=== PATIENT | female | born 1965 | race Caucasian/White ===

== ENCOUNTER 2020-05-15 15:18 | Outpatient (REF) | payer BC, SELFPAY ==
--- NOTE | 2020-05-15 15:25 | MM_ITS ---
EXAMINATION: MM SCREENING DIGITAL BREAST TOMOSYNTHESIS, BILATERAL CLINICAL INFORMATION: Screening. Asymptomatic. The lifetime risk of breast cancer based on the Tyrer-Cuzick Model is 11.7%. COMPARISON: Mammography: May 13, 2019 and studies going back to February 17, 2012 TECHNIQUE: Digital breast tomosynthesis is performed in both the craniocaudal and mediolateral oblique views along with computer-aided detection (CAD). Synthesized 2D images are generated from the tomosynthesis. FINDINGS: There are scattered areas of fibroglandular density (ACR BI-RADS breast composition Category b). There are no significant masses, abnormal calcifications, or other abnormalities. MM/MM tomosynthesis screening BI IMPRESSION: There are no significant changes from prior study. ASSESSMENT: BI-RADS 1: Negative RECOMMENDATION: Routine annual mammography screening. This patient's information was entered into a reminder system with a target due date for their next mammogram.
== END 2020-05-15 15:19 | disposition home or self-care (01) ==
LOC: HO.MAMMO 15:18
PROVIDERS: Visit Provider Internal Medicine
DX: Z12.31 Encounter for screening mammogram for malignant neoplasm of breast (principal)
CPT/HCPCS: 77063; 77067

== ENCOUNTER 2020-05-25 10:52 | Outpatient (REF) | payer OTHER, SELFPAY ==
[2020-05-25 11:10] LABS: COVID-19 Test Negative (Negative); IDNOW Serial# 55D5AD1C
== END 2020-05-25 10:53 | disposition home or self-care (01) ==
LOC: HO.LAB 10:52
PROVIDERS: PCP Internal Medicine; Visit Provider Internal Medicine
DX: Z20.822 Contact with and (suspected) exposure to COVID-19 (principal)
CPT/HCPCS: 36415; 87635; C9803

== ENCOUNTER 2020-06-15 08:01 | Outpatient (REF) | payer BC, SELFPAY ==
[2020-06-20 00:12] LABS: HPV mRNA E6/E7 rflx Not Detected (Not Detected)
== END 2020-06-15 08:02 | disposition home or self-care (01) ==
LOC: HO.LAB 08:01
PROVIDERS: PCP Internal Medicine; Visit Provider Advanced Practice Midwife
DX: Z01.419 Encounter for gynecological examination (general) (routine) without abnormal findings (principal); F41.8 Other specified anxiety disorders; Z91.018 Allergy to other foods; Z80.3 Family history of malignant neoplasm of breast; Z11.51 Encounter for screening for human papillomavirus (HPV)
CPT/HCPCS: 36415; 87624; 88142

== ENCOUNTER 2020-07-05 08:13 | Outpatient (REF) | payer BC, SELFPAY ==
[2020-07-05 09:18] LABS: MANUAL DIFF FLAG NO
[2020-07-05 09:33] LABS: Basophils Percent Auto 0.8 % (0-2); Eosinophils Absolute Auto 0.1 X10*3/uL (0.0-0.4); Eosinophils Percent Auto 3.1 % (0-4); Hematocrit 38.8 % (37-47); Hemoglobin 12.8 g/dl (12.0-16.0); Imm Gran Abs Auto 0.01 X10*3/uL (0.00-0.03); Imm Gran Pct Auto 0.3 % (0.0-0.4); Lymphocytes Absolute Auto 1.6 X10*3/uL (1.2-4.9); Lymphocytes Percent Auto 40.1 % (20-40); Mean Corpuscular Hemoglobin 32.8 pg (27.0-33.0); Mean Corpuscular Volume 99.5 fL (80-98); Mean Platelet Volume 10.2 fL (9.4-12.3); Monocytes Absolute Auto 0.3 X10*3/uL (0.1-1.2); Neutrophils Absolute Auto 1.9 X10*3/uL (2.0-8.3); Neutrophils Percent Auto 48.7 % (45-73); Platelet Count 235 X10*3/uL (160-400); Red Cell Distribution Width 12.3 % (11.0-16.0); White Blood Count 3.9 X10*3/uL (4.8-10.8)
[2020-07-05 09:51] LABS: Alanine Aminotransferase 17 U/L (0-31); Albumin Level 4.5 g/dL (3.5-5.0); Alkaline Phosphatase 52 U/L (39-117); Anion Gap 15 (12-20); Aspartate Amino Transferase 22 U/L (5-31); Bilirubin Total 0.8 mg/dL (0.0-1.0); Blood Urea Nitrogen 15 mg/dL (9-16); Calcium 9.3 mg/dL (8.4-10.2); Carbon Dioxide 27 mmol/L (22-29); Chloride 104 mmol/L (96-108); Cholesterol 157 mg/dL; Estimated Glomerular Filt Rate > 60; Glucose Fasting 84 mg/dL (60-99); HDL Cholesterol 58 mg/dL; LDL Cholesterol Calculated 91 mg/dl; Sodium 141 mmol/L (135-145); Total Protein 7.2 g/dL (6.5-8.0); Triglycerides 43 mg/dL
== END 2020-07-05 08:14 | disposition home or self-care (01) ==
LOC: HO.LAB 08:13
PROVIDERS: PCP Internal Medicine; Visit Provider Internal Medicine
DX: Z00.00 Encounter for general adult medical examination without abnormal findings (principal)
CPT/HCPCS: 36415; 80053; 80061; 82306; 85025

== ENCOUNTER 2020-12-04 11:40 | Outpatient (REF) | payer OTHER, SELFPAY ==
--- NOTE | ~2020-12-04 | XR_ITS ---
EXAMINATION: XR SHOULDER, LEFT XR CERVICAL SPINE CLINICAL INDICATION: Shoulder and neck pain. COMPARISON: None. TECHNIQUE: 4 views of the left shoulder. 6 views of the cervical spine. FINDINGS: LEFT SHOULDER 4 views of left shoulder demonstrate no evidence for fracture or dislocation. No bony erosion. There is a globular calcification anterolaterally which may represent calcific tendinitis or calcific bursitis. No bony lesion. CERVICAL SPINE: 6 views of the cervical spine including oblique imaging demonstrate normal lordosis. There is some early degenerative changes at C5-C6 with loss of disc height and posterior as well as anterior spurring. The oblique imaging demonstrating mild foraminal encroachment at C5-C6 and C6-C7 on the left. More moderate foraminal encroachment at C5-C6 on the right. There is no scoliosis. XR/XR cervical spine min 6V IMPRESSION: Findings suggest calcific tendinosis of the superior rotator cuff versus an element of calcific deltoid bursitis in the region of the left shoulder as described. Otherwise no significant degenerative changes seen. There is no bony erosion. Some early degenerative changes at C5-C6 with foraminal narrowing as described. No listhesis or compression injury is seen. Some likely early hypertrophic changes in the cervical articulating facets left greater than right.
--- NOTE | ~2020-12-04 | XR_ITS ---
EXAMINATION: XR SHOULDER, LEFT XR CERVICAL SPINE CLINICAL INDICATION: Shoulder and neck pain. COMPARISON: None. TECHNIQUE: 4 views of the left shoulder. 6 views of the cervical spine. FINDINGS: LEFT SHOULDER 4 views of left shoulder demonstrate no evidence for fracture or dislocation. No bony erosion. There is a globular calcification anterolaterally which may represent calcific tendinitis or calcific bursitis. No bony lesion. CERVICAL SPINE: 6 views of the cervical spine including oblique imaging demonstrate normal lordosis. There is some early degenerative changes at C5-C6 with loss of disc height and posterior as well as anterior spurring. The oblique imaging demonstrating mild foraminal encroachment at C5-C6 and C6-C7 on the left. More moderate foraminal encroachment at C5-C6 on the right. There is no scoliosis. XR/XR shoulder LT min 2V IMPRESSION: Findings suggest calcific tendinosis of the superior rotator cuff versus an element of calcific deltoid bursitis in the region of the left shoulder as described. Otherwise no significant degenerative changes seen. There is no bony erosion. Some early degenerative changes at C5-C6 with foraminal narrowing as described. No listhesis or compression injury is seen. Some likely early hypertrophic changes in the cervical articulating facets left greater than right.
== END 2020-12-04 11:41 | disposition home or self-care (01) ==
LOC: HO.XRAY 11:40
PROVIDERS: PCP Internal Medicine; Visit Provider Internal Medicine
DX: M25.512 Pain in left shoulder (principal); M54.2 Cervicalgia
CPT/HCPCS: 72052; 73030

== ENCOUNTER 2021-05-08 09:44 | Outpatient (REF) | payer OTHER, SELFPAY ==
[2021-05-08 10:26] LABS: Influenza A PCR NEGATIVE (Negative); Influenza B PCR NEGATIVE (Negative); Resp Syncy Virus RNA Qual PCR NEGATIVE (Negative); SARS COV2 PCR INHOUSE NEGATIVE (Negative)
== END 2021-05-08 09:45 | disposition home or self-care (01) ==
LOC: HO.LNP 09:44
PROVIDERS: Visit Provider Physician Assistant
DX: Z20.822 Contact with and (suspected) exposure to COVID-19 (principal); J02.9 Acute pharyngitis, unspecified
CPT/HCPCS: 0241U

== ENCOUNTER 2021-06-03 07:42 | Outpatient (REF) | payer OTHER, SELFPAY ==
--- NOTE | ~2021-06-03 | MM_ITS ---
EXAMINATION: MM SCREENING DIGITAL BREAST TOMOSYNTHESIS, BILATERAL CLINICAL INFORMATION: Screening. Asymptomatic. The lifetime risk of breast cancer based on the Tyrer-Cuzick Model is 15%. COMPARISON: Mammography: 05/15/2020, 05/13/2019, 08/19/2018, 07/03/2017; right breast ultrasound 05/13/2019 TECHNIQUE: Digital breast tomosynthesis is performed in both the craniocaudal and mediolateral oblique views along with computer-aided detection (CAD). Synthesized 2D images are generated from the tomosynthesis. FINDINGS: There are scattered areas of fibroglandular density (ACR BI-RADS breast composition Category b). There are no significant masses, abnormal calcifications, or other abnormalities. Parenchymal pattern is similar to prior studies. There is no developing density or architectural abnormality. The axilla and skin contours are unremarkable. No significant changes. MM/MM tomosynthesis screening BI IMPRESSION: No mammographic evidence of malignancy. ASSESSMENT: BI-RADS 1: Negative RECOMMENDATION: Routine annual mammography screening. This patient's information was entered into a reminder system with a target due date for their next mammogram.
== END 2021-06-03 07:43 | disposition home or self-care (01) ==
LOC: HO.MAMMO 07:42
PROVIDERS: Visit Provider Internal Medicine
DX: Z12.31 Encounter for screening mammogram for malignant neoplasm of breast (principal)
CPT/HCPCS: 77063; 77067

== ENCOUNTER 2022-05-01 11:42 | Outpatient (REF) | payer OTHER, SELFPAY ==
--- NOTE | ~2022-05-01 | XR_ITS ---
EXAMINATION: XR CHEST CLINICAL INFORMATION: Right upper abdominal pain, back pain COMPARISON: None TECHNIQUE: 2 views of the chest were obtained. FINDINGS: No significant abnormality is noted involving the heart, lungs, mediastinum, bony thorax or soft tissues. XR/XR chest 2V IMPRESSION: No acute pulmonary disease.
[2022-05-01 13:32] LABS: MANUAL DIFF FLAG NO
[2022-05-01 14:03] LABS: Appearance Urine Clear; Color Urine Yellow; Glucose Urine UA Negative (Negative); Leukocyte Esterase Urine Negative (Negative); Nitrite Urine Negative (Negative); PH 6.5 (5.0-9.0); Specific Gravity - Urine 1.015 (1.005-1.025); Urine Blood Negative (Negative); Urine Ketones Negative (Negative); Urine Protein Negative (Neg-Trace)
[2022-05-01 14:07] LABS: Basophils Absolute Auto 0.1 X10*3/uL (0.0-0.2); Eosinophils Absolute Auto 0.1 X10*3/uL (0.0-0.4); Eosinophils Percent Auto 2.2 % (0-4); Hematocrit 37.8 % (37.0-47.0); Hemoglobin 12.4 g/dl (12.0-16.0); Imm Gran Abs Auto 0.01 X10*3/uL (0.00-0.03); Imm Gran Pct Auto 0.2 % (0.0-0.4); Lymphocytes Absolute Auto 2.3 X10*3/uL (1.2-4.9); Lymphocytes Percent Auto 40.1 % (20-40); Mean Corpuscular HGB Conc 32.8 g/dl (31.0-35.0); Mean Corpuscular Hemoglobin 32.4 pg (27.0-33.0); Mean Corpuscular Volume 98.7 fL (80.0-98.0); Mean Platelet Volume 9.7 fL (9.4-12.3); Monocytes Absolute Auto 0.3 X10*3/uL (0.1-1.2); Monocytes Percent Auto 5.4 % (2-11); Neutrophils Percent Auto 51.1 % (45-73); Platelet Count 288 X10*3/uL (160-400); Red Blood Count 3.83 X10*6/uL (4.20-5.50); Red Cell Distribution Width 12.5 % (11.0-16.0); White Blood Count 5.8 X10*3/uL (4.8-10.8)
[2022-05-01 14:33] LABS: Alanine Aminotransferase 18 U/L (0-31); Albumin Level 4.7 g/dL (3.5-5.0); Alkaline Phosphatase 65 U/L (39-117); Anion Gap 14 (12-20); Aspartate Amino Transferase 22 U/L (5-31); Bilirubin Total 0.9 mg/dL (0.0-1.0); Blood Urea Nitrogen 18 mg/dL (9-16); C Reactive Protein 0.23 mg/dL (< or = 0.50); Carbon Dioxide 29 mmol/L (22-29); Chloride 104 mmol/L (96-108); Cholesterol 200 mg/dL; Estimated Glomerular Filt Rate > 60; Glucose Fasting 87 mg/dL (60-99); HDL Cholesterol 79 mg/dL; LDL Cholesterol Calculated 111 mg/dl; Potassium 4.9 mmol/L (3.3-5.1); Sodium 142 mmol/L (135-145); Total Protein 7.6 g/dL (6.5-8.0); Triglycerides 53 mg/dL
== END 2022-05-01 11:43 | disposition home or self-care (01) ==
LOC: HO.10HDL 11:42
PROVIDERS: Visit Provider Internal Medicine
DX: Z00.00 Encounter for general adult medical examination without abnormal findings (principal)
CPT/HCPCS: 36415; 71046; 80053; 80061; 81003; 82550; 85025; 86140

== ENCOUNTER 2022-05-20 07:58 | Outpatient (REF) | payer OTHER, SELFPAY ==
--- NOTE | ~2022-05-20 | US_ITS ---
EXAMINATION: US ABDOMEN COMPLETE CLINICAL INFORMATION: Right upper quadrant pain. COMPARISON: CT abdomen and pelvis with contrast 06/02/2017. TECHNIQUE: Real-time imaging of the abdominal viscera. FINDINGS: PANCREAS: Normal. ABDOMINAL AORTA: The proximal, mid, and distal segments are normal in caliber. INFERIOR VENA CAVA: Visualized portions are normal. LIVER: The liver is normal in size. The liver contour is normal. . Increased echogenicity of the liver parenchyma. No focal hepatic lesion. There is no intrahepatic biliary duct dilatation seen. GALLBLADDER: Normal. The gallbladder is physiologically distended without evidence of stones, sludge, polyps, wall thickening or pericholecystic fluid. COMMON BILE DUCT: Normal in caliber measuring 0.6 cm in diameter. RIGHT KIDNEY: Normal. No hydronephrosis. No renal calculi or focal parenchymal lesions. The kidney measures 11.2 cm in maximum dimension. LEFT KIDNEY: 1.1 cm nonobstructing stone. No hydronephrosis or focal parenchymal lesions. The kidney measures 10.6 cm in maximum dimension. SPLEEN: Normal. The spleen measures 8.5 cm in maximum dimension. FREE FLUID: None. US/US abdomen complete IMPRESSION: 1.1 cm nonobstructing left renal stone. No hydronephrosis. Increased echogenicity of the liver parenchyma may reflect hepatic steatosis. Previously seen innumerable cysts on prior CT are not visualized on today's study, however these may not be within the resolution of ultrasound and recommend dedicated CT or MR liver protocol as clinically warranted for further evaluation.
== END 2022-05-20 07:59 | disposition home or self-care (01) ==
LOC: HO.US 07:58
PROVIDERS: PCP Internal Medicine; Visit Provider Internal Medicine
DX: R10.11 Right upper quadrant pain (principal)
CPT/HCPCS: 76700

== ENCOUNTER 2022-06-05 07:41 | Outpatient (REF) | payer OTHER, SELFPAY ==
--- NOTE | ~2022-06-05 | MM_ITS ---
EXAMINATION: MM SCREENING DIGITAL BREAST TOMOSYNTHESIS, BILATERAL CLINICAL INFORMATION: Screening. Asymptomatic. The lifetime risk of breast cancer based on the Tyrer-Cuzick Model is 20%. Additional annual screening with breast MRI may be of benefit in women with a score of 20% or greater. COMPARISON: Mammography: June 03, 2021 and studies dating back to May 24, 2015. TECHNIQUE: Digital breast tomosynthesis is performed in both the craniocaudal and mediolateral oblique views along with computer-aided detection (CAD). Synthesized 2D images are generated from the tomosynthesis. FINDINGS: There are scattered areas of fibroglandular density (ACR BI-RADS breast composition Category b). There are no significant masses, abnormal calcifications, or other abnormalities. MM/MM tomosynthesis screening BI IMPRESSION: No significant changes from prior exam. ASSESSMENT: BI-RADS 1: Negative RECOMMENDATION: Routine annual mammography screening. This patient's information was entered into a reminder system with a target due date for their next mammogram.
== END 2022-06-05 07:42 | disposition home or self-care (01) ==
LOC: HO.MAMMO 07:41
PROVIDERS: PCP Internal Medicine; Visit Provider Internal Medicine
DX: Z12.31 Encounter for screening mammogram for malignant neoplasm of breast (principal)
CPT/HCPCS: 77063; 77067

== ENCOUNTER 2023-03-25 07:55 | Outpatient (AMB) | payer OTHER, SELFPAY ==
--- NOTE | 2023-03-25 08:02 | A.OFFVIS_ITS ---
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 She is doing well with no concerns. Attempting to eat a healthy diet with calcium and vitamin D and stays active with exercise. Not currently sexually active, w/spouse. Denies any vaginal dryness or irritation. Last pap smear; 2020, negative. Last mammogram; 05/2022, negative. Colonoscopy is UTD. [facility], 1928–1983 Medical History (Updated 03/25/23 @ 08:15 by CORRY Ivey) Varicose vein of leg History of depression History of anxiety Skin cancer of face Surgical History Hx of adenoidectomy History of appendectomy H/O laparoscopy Family History Paternal Grandmother History of breast cancer Bone cancer Mother Breast cancer, Onset Age: 74 Maternal Grandmother Lung cancer Liver cancer Social History Alcohol intake: current Alcohol intake frequency: a few times a month Patient Tobacco Use Status: Never used Tobacco Current occupational status: employed Current occupation: [employer] Female Reproductive History Menstrual Menopause type: natural Total pregnancies: 2 Full term: 2 Number of Living Children: 2 Date of last pap smear: 06/15/20 (neg pap and hpv) History of abnormal pap smear: Yes (01/06 ascus) Date of Mammogram: 06/05/22 (Birad 1) Review of Systems Const All systems reviewed & are unremarkable except as noted in HPI and below Reports as per HPI Eyes Reports no additional complaints ENT Reports no additional complaints Card Reports no additional complaints Resp Reports no additional complaints GI Reports as per [facility] and Reports no additional complaints Reports as per HPI Musc Reports no additional complaints Skin/Breast Reports as per HPI Neuro Reports no additional complaints Psych Reports no additional complaints Endo Reports no additional complaints Cornell/Lymph Reports no additional complaints Aller/Immun Reports no additional complaints Physical Exam Vital Signs: Last Vital Signs BP 110/76 03/25/23 08:04 BMI result Body Mass Index 26.0 Const General: cooperative, healthy appearing, no acute distress, well developed and alert Orientation/consciousness: patient oriented x3 HEENT Head: Yes normal to inspection Eyes General: appearance normal, both eyes and all related structures Neck Neck: Yes normal visual inspection Thyroid: Thyroid normal Chest Chest palpation & inspection: normal inspection of the chest and other (no puckering, dimpling, peau de orange, retraction, discharge, masses) Breast/axilla inspection: normal inspection of the breasts Breast/axilla palpation: normal palpation of the breasts Resp Effort & Inspection: normal respiratory effort GI Inspection: Yes normal to inspection Palpation (GI): Soft to palpation Rectal Exam - Female: deferred General: Yes bladder normal to palpation External Female Exam: normal external appearance and normal appearance of the urethra Speculum Exam - Vagina: normal appearance of the vagina, normal palpation, normal vaginal discharge and vagina atrophic Speculum Exam - Cervix: normal appearance of the cervix and normal palpation Bimanual exam- vagina & uterus: normal bimanual exam, normal palpation, uterine size normal, bladder normal to palpation, normal palpation and non-tender Bimanual Exam- Adnexa, other: no masses Skin General skin exam: no rashes or lesions noted Rashes: no rashes Neuro General: patient oriented x3 Cognition (Neuro): normal cognition Extrem General: Yes normal to inspection Psych Attitude: cooperative Thought process: Normal thought process present Assessment & Plan Assessment & Plan (1) Encounter for annual routine gynecological examination: Code(s): Z01.419 - Encounter for gynecological examination (general) (routine) without abnormal findings Plan: Discussed: Current recommendations for pap smears per ASCCP guidelines. Breast awareness, periodic self breast exams and yearly mammogram. Maintain a healthy lifestyle, well balanced diet including Calcium 1,200 mg and Vitamin D 600 IU daily, and routine exercise. Contact the office with any postmenopausal bleeding. Replens, vaginal moisturizer use. All of her questions and concerns were addressed to the best of my ability. RTO in 1 year for annual pattern setter exam. Coding Level of Care Code Est Pt Prev Care 40-64y(05724) Diagnoses Encounter for annual routine gynecological examination Z01.419
[2023-03-25 08:04] VITALS: BP 110/76; BMI 26.0
== END 2023-03-25 08:30 | disposition home or self-care (01) ==
PROVIDERS: PCP Internal Medicine; Visit Provider Advanced Practice Midwife
DX: Z01.419 Encounter for gynecological examination (general) (routine) without abnormal findings (principal)
CPT/HCPCS: 99396

== ENCOUNTER → 2023-03-25 07:55 | Outpatient (BNVA) | payer OTHER, SELFPAY | PROVIDERS: PCP Internal Medicine; Visit Provider Advanced Practice Midwife ==

== ENCOUNTER 2023-05-12 10:44 | Outpatient (REF) | payer OTHER, SELFPAY ==
--- NOTE | 2023-05-12 | PFT_ITS ---
Flows: FEV1: 103 % of predicted at 2.96 L FVC: 104 % of predicted at 3.79 L FEV1/FVC: 78 % Bronchodilator response: Absent Volumes: Total lung capacity: 93 % of predicted at 5.29 L Residual volume: 68 % of predicted at 1.25 L Slow vital capacity: 104 % of predicted at 4.04 L Expiratory reserve volume: 169 % of predicted at 1.73 L Diffusion capacity: Normal Impression: No obstructive or restrictive ventilatory defect. No bronchodilator response. Normal pulmonary function test. MTDD
[2023-05-12 10:45] VITALS: PULSE 80; RESP 20; O2SAT 95
== END 2023-05-12 10:45 | disposition home or self-care (01) ==
LOC: HO.RESP 10:44
PROVIDERS: PCP Internal Medicine; Visit Provider Internal Medicine
DX: G93.31 Postviral fatigue syndrome (principal)
CPT/HCPCS: 94010; 94640; 94727; 94729

== ENCOUNTER → 2023-05-12 11:00 | Outpatient (BNV) | payer OTHER, SELFPAY | PROVIDERS: PCP Internal Medicine; Visit Provider Internal Medicine Pulmonary Disease | DX: R05.9 Cough, unspecified (principal) | CPT/HCPCS: 94060; 94727; 94729 ==

== ENCOUNTER 2023-06-30 08:10 | Outpatient (REF) | payer OTHER, SELFPAY ==
--- NOTE | ~2023-06-30 | MM_ITS ---
EXAMINATION: MM SCREENING DIGITAL BREAST TOMOSYNTHESIS, BILATERAL CLINICAL INFORMATION: Screening. Asymptomatic. COMPARISON: Mammography: 06/05/2022, 06/03/2021, and studies dating back to May 24, 2015. TECHNIQUE: Digital breast tomosynthesis is performed in both the craniocaudal and mediolateral oblique views along with computer-aided detection (CAD). Synthesized 2D images are generated from the tomosynthesis. FINDINGS: There are scattered areas of fibroglandular density (ACR BI-RADS breast composition Category b). There is a parenchymal asymmetry in the slightly lateral axis right breast CC projection, mid depth, which is unchanged from 2020 examination and benign. Otherwise, There are no suspicious masses, suspicious grouped calcifications, or areas of architectural distortion in either breast. The parenchymal pattern is stable from prior exams. There is no skin or axillary abnormality. MM/MM tomosynthesis screening BI IMPRESSION: No mammographic evidence of malignancy. ASSESSMENT: BI-RADS BI-RADS 1 - Negative RECOMMENDATION: Routine annual mammography screening. 1 year F/U This examination should not preclude the clinical evaluation of a suspicious palpable abnormality. This patient's information was entered into a reminder system with a target due date for their next mammogram.
--- NOTE | ~2023-06-30 | MM_ITS ---
EXAMINATION: BONE DENSITOMETRY CLINICAL INDICATION: Postmenopausal. COMPARISON: This is the patient's baseline examination. TECHNIQUE: Using a Plus[employer] DXA System (software version: 13.1) manufactured by [employer], dual-energy x-ray absorptiometry was performed of the lumbar spine and left hip. The images are of good technical quality. Summary results are attached. FINDINGS: LEFT FEMUR, NECK: BMD 0.843 g/cm2, Z-score -0.5, T-score -1.4, osteopenia. LEFT FEMUR, TOTAL: BMD 0.916 g/cm2, Z-score -0.2, T-score -0.7, normal. AP SPINE L1-L4: BMD 1.140 g/cm2, Z-score 0.3, T-score -0.3, normal. IDENTIFIED RISK FACTORS: Menopause, low calcium intake. HISTORY OF FRACTURE: None listed. MEDICATIONS: Vitamin D. MM/XR DEXA axial skeleton IMPRESSION: 1. DIAGNOSIS: Osteopenia based on the lowest T-score value of -1.4 in the femoral neck applying World Health Organization criteria. 2. 10-YEAR FRACTURE RISK PREDICTION, FRAX: Major osteoporotic fracture (clinical spine, forearm, hip or shoulder) 7.0%. Hip fracture 0.5%. 3. Treatment Recommendations: NOF guidelines recommend consideration for treatment in postmenopausal women and men age 50 and older presenting with the following: -A hip or vertebral (clinical or morphometric) fracture. -T-score less than or equal to -2.5 at the femoral neck or spine after appropriate evaluation to exclude secondary causes. -Low bone mass at the hip or spine and a 10-year fracture probability by FRAX of greater than or equal to 3% for hip fracture or greater than or equal to 20% for major osteoporotic fracture based on the [place] adapted WHO algorithm. 4. Other Recommendations: All treatment decisions require clinical judgment and consideration of individual patient factors, including patient preferences, comorbidities, previous drug use, risk factors not captured in the FRAX model (e.g. frailty, falls, vitamin D deficiency, increased bone turnover, interval significant decline in bone density) and possible under or overestimation of fracture risk by FRAX. Additional medical evaluation for secondary cause of low bone mineral density may be appropriate. FUTURE SCAN RECOMMENDATION: People with diagnosed cases of osteoporosis or at high risk for fracture should have regular bone mineral density tests. For patients eligible for Medicare, routine testing is allowed once every 2 years. The testing frequency can be increased to one year for patients who have rapidly progressing disease, those who are receiving or discontinuing medical therapy to restore bone mass, or have additional risk factors.
== END 2023-06-30 08:11 | disposition home or self-care (01) ==
LOC: HO.MAMMO 08:10
PROVIDERS: PCP Internal Medicine; Visit Provider Internal Medicine
DX: Z12.31 Encounter for screening mammogram for malignant neoplasm of breast (principal); Z13.820 Encounter for screening for osteoporosis; Z78.0 Asymptomatic menopausal state
CPT/HCPCS: 77063; 77067; 77080

== ENCOUNTER → 2023-06-30 08:30 | Outpatient (BNV) | payer OTHER, SELFPAY | PROVIDERS: PCP Internal Medicine; Visit Provider Radiology Diagnostic Radiology | DX: Z12.31 Encounter for screening mammogram for malignant neoplasm of breast (principal) | CPT/HCPCS: 77063; 77067 ==

== ENCOUNTER 2023-08-05 08:25 | Outpatient (REF) | payer OTHER, SELFPAY ==
[2023-08-05 08:44] LABS: MANUAL DIFF FLAG NO
[2023-08-05 09:28] LABS: Basophils Absolute Auto 0.1 X10*3/uL (0.0-0.2); Basophils Percent Auto 1.3 % (0-2); Eosinophils Absolute Auto 0.1 X10*3/uL (0.0-0.4); Eosinophils Percent Auto 2.6 % (0-4); Hematocrit 36.3 % (37.0-47.0); Hemoglobin 12.3 g/dl (12.0-16.0); Imm Gran Abs Auto 0.02 X10*3/uL (0.00-0.03); Imm Gran Pct Auto 0.4 % (0.0-0.4); Lymphocytes Absolute Auto 1.9 X10*3/uL (1.2-4.9); Lymphocytes Percent Auto 34.8 % (20-40); Mean Corpuscular HGB Conc 33.9 g/dl (31.0-35.0); Mean Corpuscular Hemoglobin 32.9 pg (27.0-33.0); Mean Corpuscular Volume 97.1 fL (80.0-98.0); Mean Platelet Volume 9.5 fL (9.4-12.3); Monocytes Absolute Auto 0.3 X10*3/uL (0.1-1.2); Monocytes Percent Auto 5.9 % (2-11); Platelet Count 254 X10*3/uL (160-400); Red Blood Count 3.74 X10*6/uL (4.20-5.50); Red Cell Distribution Width 12.4 % (11.0-16.0); White Blood Count 5.4 X10*3/uL (4.8-10.8)
[2023-08-05 09:43] LABS: Appearance Urine Clear; Color Urine Yellow; Glucose Urine UA Negative (Negative); Leukocyte Esterase Urine Negative (Negative); Nitrite Urine Negative (Negative); Specific Gravity - Urine 1.015 (1.005-1.025); Urine Blood Negative (Negative); Urine Ketones Negative (Negative); Urine Protein Negative (Neg-Trace)
[2023-08-05 10:01] LABS: Alanine Aminotransferase 15 U/L (0-31); Albumin Level 4.4 g/dL (3.5-5.0); Alkaline Phosphatase 55 U/L (39-117); Anion Gap 12 (12-20); Aspartate Amino Transferase 19 U/L (5-31); Bilirubin Total 0.9 mg/dL (0.0-1.0); Blood Urea Nitrogen 18 mg/dL (9-16); Calcium 9.4 mg/dL (8.4-10.2); Carbon Dioxide 26 mmol/L (22-29); Chloride 106 mmol/L (96-108); Cholesterol 184 mg/dL (<200); Estimated Glomerular Filt Rate > 60; Glucose Fasting 87 mg/dL (60-99); HDL Cholesterol 68 mg/dL (>40); LDL Cholesterol Calculated 105 mg/dL (<100); Sodium 140 mmol/L (135-145); Total Protein 7.4 g/dL (6.5-8.0); Triglycerides 56 mg/dL (<150)
[2023-08-05 10:19] LABS: Vitamin D 25-OH Total 56.1 ng/mL (>30)
== END 2023-08-05 08:26 | disposition home or self-care (01) ==
LOC: HO.LAB 08:25
PROVIDERS: PCP Internal Medicine; Visit Provider Internal Medicine
DX: Z00.00 Encounter for general adult medical examination without abnormal findings (principal); Z13.6 Encounter for screening for cardiovascular disorders
CPT/HCPCS: 36415; 80053; 80061; 81003; 82306; 85025

== ENCOUNTER 2023-08-05 15:29 | Outpatient (REF) | payer OTHER, SELFPAY ==
--- NOTE | ~2023-08-05 | US_ITS ---
EXAMINATION: US PELVIS CLINICAL INFORMATION: Pelvic pain. COMPARISON: Pelvic ultrasound 06/04/2017. TECHNIQUE: Ultrasound of the pelvis is performed using both transabdominal and transvaginal transducers along with Doppler. Transvaginal imaging is performed due to inadequate visualization transabdominally. FINDINGS: Uterus: The uterus is anteverted and measures 5.4 x 2.1 x 3.4 cm. The uterus appears normal. The double wall endometrial thickness is 2 mm. The uterus is smooth in contour and has normal myometrial echogenicity. No visible fibroid. Adnexa: The right ovary measures 1.0 x 1.0 x 1.4 cm, 0.7 mL. The left ovary measures 1.3 x 1.1 x 1.9 cm, volume 1.4 mL. Normal color flow. No ovarian mass. No free fluid in the cul-de-sac. US/US pelvic and transvaginal IMPRESSION: Unremarkable pelvic ultrasound. Previously seen possible fibroid is not visualized on this exam.
== END 2023-08-05 15:30 | disposition home or self-care (01) ==
LOC: HO.US 15:29
PROVIDERS: PCP Internal Medicine; Visit Provider Internal Medicine
DX: R10.2 Pelvic and perineal pain (principal)
CPT/HCPCS: 76830; 76856

== ENCOUNTER → 2023-12-15 10:09 | Outpatient (BNVA) | payer OTHER, SELFPAY | PROVIDERS: PCP Internal Medicine; Visit Provider Physician Assistant Medical | DX: Z13.89 Encounter for screening for other disorder (principal) | CPT/HCPCS: 87635 ==

== ENCOUNTER 2024-01-26 14:16 | Outpatient (REF) | payer OTHER, SELFPAY ==
--- NOTE | ~2024-01-26 | XR_ITS ---
EXAMINATION: XR WRIST RIGHT 4 VIEWS CLINICAL INFORMATION: Right wrist injury. Patient states FOOSH about 1 day ago, pain with use in first digit through scaphoid area. COMPARISON: None available. TECHNIQUE: PA, lateral, oblique and navicular views of the right wrist. FINDINGS: The bones and soft tissues are normal. No fracture. Alignment is anatomic with normal joint spaces. No erosions or abnormal soft tissue calcifications. XR/XR wrist RT min 3V IMPRESSION: Normal right wrist. Electronically signed by: Bryan Brown MD 04/08/2024 09:36 AM EST
== END 2024-01-26 14:17 | disposition home or self-care (01) ==
LOC: HO.XRAY 14:16
PROVIDERS: PCP Internal Medicine; Visit Provider Internal Medicine
DX: M25.531 Pain in right wrist (principal)
CPT/HCPCS: 73110

== ENCOUNTER 2024-02-12 08:05 | Outpatient (AMB) | payer OTHER, SELFPAY ==
--- NOTE | 2024-02-12 08:09 | A.OFFVIS_ITS ---
Vital Signs 02/12/24 08:15 Height 5 ft 7 in Weight 166 lb BMI 26.0 Intake Visit Reasons: [employer] WORK[employer]-Right wrist injury-DOI 01/24/24 Intake Note: Jennifer is a 58 year old right hand dominant female who presents today as a new patient for her right wrist injury s/p DOI 01/24/24.Patient states that she fell again on ice and tried to brake her fall about two days ago on the right wrist as well. Allergies celecoxib [From Celebrex] Allergy (Severe, Verified 02/12/24 08:12) swelling of face bananas Allergy (Unknown, Uncoded 12/04/21 09:10) Unknown bananas/walnuts Allergy (Unknown, Uncoded 12/04/21 09:10) Unknown raisins Allergy (Unknown, Uncoded 12/04/21 09:10) Unknown walnuts Allergy (Unknown, Uncoded 12/04/21 09:10) Unknown HPI HPI [employer] WORK[employer]-Right wrist injury-DOI 01/24/24: Details: Patient is a 58-year-old female who presents for evaluation of the right wrist and thumb pain extra fall, date of injury 01/24/2024. At that time, the patient reports that she fell onto an outstretched right hand and wrist, and is experience significant pain at the base of the thumb since that time. The patient reports that she did have a repeat injury approximately 4 days ago where she tripped and fell on ice and fell onto her right hand, but states that she no ticed no acute worsening of her symptoms at that time. The patient states that she has been wearing a Velcro thumb spica splint provided to her at work inconsistently, but states that she found uncomfortable. Patient denies any numbness or tingling in right hand. No other acute complaints or concerns at this time. [facility] Medical History (Updated 02/12/24 @ 10:57 by DAWOOD Stone) Varicose vein of leg History of depression History of anxiety Skin cancer of face Surgical History Hx of adenoidectomy History of appendectomy H/O laparoscopy Family History Paternal Grandmother History of breast cancer Bone cancer Mother Breast cancer, Onset Age: 74 Maternal Grandmother Lung cancer Liver cancer Social History Alcohol intake: current Alcohol intake frequency: a few times a month Patient Tobacco Use Status: Never used Tobacco Current occupational status: employed Current occupation: [employer] Review of Systems Const All systems reviewed & are unremarkable except as noted in HPI and below Physical Exam Vital Signs: BMI result Body Mass Index 26.0 Extrem Other: Patient is alert, oriented, and in no acute distress. Neuro: Normal sensation of the tips of all digits of the right hand at this time Vascular: Cap refill brisk Pain: Patient reports significant tenderness to palpation of the base of the right thumb Patient reports mild tenderness to palpation of the anatomical snuffbox of the right hand Patient is able to make a closed fist with all other digits of the right hand without pain ROM: Patient is able to make a closed fist and extend all digits of the right hand, but reports mild discomfort in the base of the right Skin: No lacerations or abrasions. General: No ecchymosis, erythema, or evidence of infection. Psych: Appears grossly normal Affect normal Attitude cooperative Office Procedures Casting/Splints Details: Thumb spica cast applied 89273-Cbtlryg Cast Application Procedure code (CPT) selection complete Results Reviewed Results Reviewed: X-rays obtained in the office today and independently reviewed by Roberto valdes PA-C, demonstrate no radio evident fracture or acute bony abnormality CT scan of the right wrist obtained today and independently reviewed by Roberto valdes PA-C, demonstrates comminuted and mildly displaced fracture of the right trapezium Radiology read of right wrist CT scan: CT/CT wrist RT wo IV con IMPRESSION: Nondisplaced/minimally displaced minimally comminuted intra-articular fracture of the distal trapezium No scaphoid fracture Electronically signed by: Ben Parson MD 02/12/2024 10:24 AM EDT RP Assessment & Plan Assessment & Plan (1) Fracture of trapezium of right wrist: Code(s): S62.171A - Displaced fracture of trapezium [larger multangular], right wrist, initial encounter for closed fracture Category: Medical Plan 1. Trapezium fracture of right wrist Date of injury 01/24/2024 Patient is educated about this injury and the typical recovery course Patient has CT scan and physical exam findings are discussed with Dr. Wilkinson, and a collaborative treatment plan was formed: At this time, patient was placed into a short-arm thumb spica cast for immobilization of the right thumb due to her fracture Patient is educated on proper cast care and precautions Patient is advised that as her injury is almost 3 weeks old, bony healing should begin soon Patient understands this Patient will follow-up in 1 week for follow-up assessment with wilmer Lara ooner with any acute concerns Orders: Orders CT wrist RT wo IV con Today M79.643 - Pain in unspecified hand XR wrist RT w scaphoid Today M79.641 - Pain in right hand Coding Level of Care Code New Pt Level 3 (58904) Diagnoses Fracture of trapezium of right wrist S62.171A CPT Codes Casting - CPT: 82539-Kfcgsov Cast Application ([id number])
[2024-02-12 08:15] VITALS: BMI 26.0
== END 2024-02-12 09:20 | disposition home or self-care (01) ==
PROVIDERS: PCP Internal Medicine
DX: S62.171A Displaced fracture of trapezium [larger multangular], right wrist, initial encounter for closed fracture (principal)
CPT/HCPCS: 25680; 99203

== ENCOUNTER 2024-02-12 09:33 | Outpatient (REF) | payer OTHER, SELFPAY ==
--- NOTE | ~2024-02-12 | CT_ITS ---
EXAMINATION: CT WRIST WITHOUT CONTRAST, RIGHT CLINICAL INFORMATION: concern for scaphoid fracture COMPARISON: X-ray of the right wrist performed 02/12/2024 TECHNIQUE: CT Scan of the right wrist is performed without contrast with reconstruction imaging performed at the acquisition workstation This CT examination was performed using dose optimization techniques as appropriate, variously including the following: *Automated exposure control *Adjustment of mA and/or kV according to patient size (this includes techniques or standardized protocols for targeted exams where dose is matched to indication/reason for exam; i.e. extremities or head) *Use of iterative reconstruction technique DLP: 113 mGy-cm FINDINGS: Scaphoid: Intact. No fracture. Trapezium: There is a nondisplaced/minimally displaced minimally comminuted intra-articular fracture of the ulnar distal aspect of the bone. See coronal image 12 series 7. See axial image 46 series 9 the fracture line extends to the ulnar aspect of the 1st carpometacarpal joint The remaining bones joints and soft tissues are unremarkable. CT/CT wrist RT wo IV con IMPRESSION: Nondisplaced/minimally displaced minimally comminuted intra-articular fracture of the distal trapezium No scaphoid fracture Electronically signed by: Ben Parson MD 02/12/2024 10:24 AM EDT
== END 2024-02-12 09:34 | disposition home or self-care (01) ==
LOC: HO.CT 09:33
PROVIDERS: PCP Internal Medicine
DX: M79.641 Pain in right hand (principal)
CPT/HCPCS: 73200

== ENCOUNTER 2024-02-16 10:38 | Outpatient (AMB) | payer OTHER, SELFPAY ==
--- NOTE | 2024-02-16 11:11 | A.OFFVIS_ITS ---
Intake Visit Reasons: OV- Right wrist CT scan review Intake Note: Jennifer is a 58 yo right hand dominant female who presents today on a right thumb spica short arm cast to discuss right wrist CT Scan results. Patient originally seen for a right wrist injury, DOI 01/24/24, s/p fall. Patient reports falling again re-injuring her right wrist. Patient would like to discuss work restrictions and limitations. She feels her hand has been swelling with overuse at work. Allergies celecoxib [From Celebrex] Allergy (Severe, Verified 02/12/24 08:12) swelling of face bananas Allergy (Unknown, Uncoded 12/04/21 09:10) Unknown bananas/walnuts Allergy (Unknown, Uncoded 12/04/21 09:10) Unknown raisins Allergy (Unknown, Uncoded 12/04/21 09:10) Unknown walnuts Allergy (Unknown, Uncoded 12/04/21 09:10) Unknown HPI HPI OV- Right wrist CT scan review: Details: Jennifer is a 58 year old right hand dominant woman who returns for a CT scan review of her right wrist fracture. 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 She fell on 01/24/24 onto her right wrist. She reports a second fall on 02/08/24. She was seen for the first time in office on 02/12/24 by DAWOOD Mejia where a CT scan was ordered and she was placed in the thumb spica cast. She says she is doing well overall. She complains of some pain in her wrist & base of her thumb. She also is worried about swelling of her hand from overuse at work. She denies any numbness or tingling. She would like to discuss work restrictions. She says she has been working light duty, primarily using a computer [facility] Medical History (Updated 02/12/24 @ 10:57 by DAWOOD Stone) Varicose vein of leg History of depression History of anxiety Skin cancer of face Surgical History Hx of adenoidectomy History of appendectomy H/O laparoscopy Family History Paternal Grandmother History of breast cancer Bone cancer Mother Breast cancer, Onset Age: 74 Maternal Grandmother Lung cancer Liver cancer Social History Alcohol intake: current Alcohol intake frequency: a few times a month Patient Tobacco Use Status: Never used Tobacco Current occupational status: employed Current occupation: [employer] Review of Systems Const All systems reviewed & are unremarkable except as noted in HPI and below Physical Exam Const General: cooperative, healthy appearing and no acute distress Orientation/consciousness: patient oriented x3 HEENT Head: Yes normocephalic and Yes atraumatic Eyes EOM: EOMs intact bilaterally Resp Effort & Inspection: normal respiratory effort and able to speak in complete sentences Cardio Jugular venous distension: no JVD Skin General skin exam: turgor normal Rashes: no rashes Neuro General: patient oriented x3 Extrem Other: Evaluation of Right Upper Extremity: The patient is alert, oriented, and in no acute distress Neuro: Median, Ulnar, Radial nerves motor and sensory intact Vascular: Cap refill brisk ROM: She can make a fist and extend all of her digits. No locking or catching She is most tender to palpation over the fracture and the trapezium of the right thumb Skin: No lacerations or abrasions. General: No Ecchymosis. No Erythema or evidence of infection. Radiographs: 3 views of the right wrist from 02/12/24 were reviewed by me today in clinic. They show a comminuted trapezium fracture, intra-articular. CT Scan: FINDINGS: Scaphoid: Intact. No fracture. Trapezium: There is a nondisplaced/minimally displaced minimally comminuted intra-articular fracture of the ulnar distal aspect of the bone. See coronal image 12 series 7. See axial image 46 series 9 the fracture line extends to the ulnar aspect of the 1st carpometacarpal joint The remaining bones joints and soft tissues are unremarkable. IMPRESSION: Nondisplaced/minimally displaced minimally comminuted intra-articular fracture of the distal trapezium No scaphoid fracture Electronically signed by: Ben Parson MD 02/12/2024 Psych Appearance: grossly normal Affect: normal affect Attitude: cooperative Office Procedures AMB Fracture Care Details: Fracture care trapezium 50142 Fracture Billing Code: Fracture Billing Code Assessment & Plan Assessment & Plan (1) Fracture of trapezium of right wrist: Code(s): S62.171A - Displaced fracture of trapezium [larger multangular], right wrist, initial encounter for closed fracture Category: Medical Plan Assessment & Plan: 1. Right wrist Trapezium fracture, S/P fall, DOI: 01/24/24 Now 3 weeks post injury. I educated her about this condition I reviewed her CT scan images with her She feels like she has had some improvement in her pain since she has been in the cast. 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 She will remain on light duty until her next appointment. She will follow up in 1 week to see how she is doing, no X-rays unless she has a new injury. Anticipate discontinuing the cast at that time, and placement in a soft splint with daily activities Scribed for Katalina Wilkinson MD by Hernán Bush, medical office manager, on 02/16/24 at 11:35 AM, EST. Coding Level of Care Code Est Pt Level 3 (85565) Diagnoses Fracture of trapezium of right wrist S62.171A CPT Codes Fracture Care - Fracture Billing Code: Fracture Billing Code ([id number])
== END 2024-02-16 11:56 | disposition home or self-care (01) ==
PROVIDERS: PCP Internal Medicine; Visit Provider Orthopaedic Surgery
DX: S62.171A Displaced fracture of trapezium [larger multangular], right wrist, initial encounter for closed fracture (principal); W19.XXXA Unspecified fall, initial encounter
CPT/HCPCS: 29085; 99024

== ENCOUNTER → 2024-02-16 10:38 | Outpatient (BNVA) | payer OTHER, SELFPAY | PROVIDERS: PCP Internal Medicine; Visit Provider Orthopaedic Surgery | DX: S62.171A Displaced fracture of trapezium [larger multangular], right wrist, initial encounter for closed fracture (principal) | CPT/HCPCS: 29085 ==

== ENCOUNTER 2024-02-24 10:15 | Outpatient (AMB) | payer OTHER, SELFPAY ==
[2024-02-24 10:30] VITALS: BMI 26.0
--- NOTE | 2024-02-24 10:30 | MHC.OFFVIS ---
Vital Signs 02/24/24 10:30 Height 5 ft 7 in Weight 166 lb BMI 26.0 Intake Visit Reasons: OV-right wrist pain-w/out xrays Intake Note: Jennifer is a 58 yo right hand dominant female who presents today on a right thumb-spica short arm cast for a ROM check. Allergies celecoxib [From Celebrex] Allergy (Severe, Verified 02/24/24 10:34) swelling of face bananas Allergy (Unknown, Uncoded 02/24/24 10:34) Unknown bananas/walnuts Allergy (Unknown, Uncoded 02/24/24 10:34) Unknown raisins Allergy (Unknown, Uncoded 02/24/24 10:34) Unknown walnuts Allergy (Unknown, Uncoded 02/24/24 10:34) Unknown HPI HPI OV-right wrist pain-w/out xrays: Details: Jennifer is a 58 year old right hand dominant woman who returns for a follow-up of her right trapezium fracture. 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 She complains of some pain in her wrist & base of her thumb but says this has been improving. She denies any numbness or tingling. She would like to discuss work restrictions. She says she has been working light duty, primarily using a computer [facility] Medical History (Updated 02/12/24 @ 10:57 by DAWOOD Stone) Varicose vein of leg History of depression History of anxiety Skin cancer of face Surgical History Hx of adenoidectomy History of appendectomy H/O laparoscopy Family History Paternal Grandmother History of breast cancer Bone cancer Mother Breast cancer, Onset Age: 74 Maternal Grandmother Lung cancer Liver cancer Social History Alcohol intake: current Alcohol intake frequency: a few times a month Patient Tobacco Use Status: Never used Tobacco Current occupational status: employed Current occupation: [employer] Review of Systems Const All systems reviewed & are unremarkable except as noted in HPI and below Physical Exam Vital Signs: BMI result Body Mass Index 26.0 Const General: no acute distress and alert Orientation/consciousness: patient oriented x3 Neuro General: patient oriented x3 Extrem Other: Evaluation of Right Upper Extremity: The patient is alert, oriented, and in no acute distress Neuro: Median, Ulnar, Radial nerves motor and sensory intact Vascular: Cap refill brisk ROM: She can make a fist and extend all of her digits. No locking or catching She is mildly tender to palpation over the volar ulnar basal joint No tenderness over the dorsal basal joint Good active motion of the thumb without discomfort. Radiographs: 3 views of the right wrist from 02/12/24 were reviewed by me today in clinic. They show a comminuted trapezium fracture, intra-articular. CT Scan: FINDINGS: Scaphoid: Intact. No fracture. Trapezium: There is a nondisplaced/minimally displaced minimally comminuted intra-articular fracture of the ulnar distal aspect of the bone. See coronal image 12 series 7. See axial image 46 series 9 the fracture line extends to the ulnar aspect of the 1st carpometacarpal joint The remaining bones joints and soft tissues are unremarkable. IMPRESSION: Nondisplaced/minimally displaced minimally comminuted intra-articular fracture of the distal trapezium No scaphoid fracture Electronically signed by: Ben Parson MD 02/12/2024 Psych Appearance: grossly normal Affect: normal affect Attitude: cooperative Assessment & Plan Assessment & Plan (1) Fracture of trapezium of right wrist: Code(s): S62.171A - Displaced fracture of trapezium [larger multangular], right wrist, initial encounter for closed fracture Category: Medical Plan Assessment & Plan: 1. Right wrist Trapezium fracture, S/P fall, DOI: 01/24/24 Appears to be extra-articular Now 3 weeks post injury. I educated her about this condition We will continue to manage this non-operatively She was fitted for a velcro wrist splint, to be worn with daily activities for the next 2 weeks. She will remove this when at home I discussed activity modifications, she is to lift nothing heavier than a cellphone for the next week. 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 She was given a note to remain on light duty with a 2lb weight limit for the next 4 weeks. She should also avoid any activities requiring her to wear gloves at work She will follow up in 4 weeks with Roberto for a ROM check. She may cancel this if she is doing well Scribed for Katalina Wilkinson MD by Hernán Bush, medical translator, on 02/24/24 at 11:00 AM, EST. Coding Level of Care Code Global (54895) Diagnoses Fracture of trapezium of right wrist S62.171A
== END 2024-02-24 11:11 | disposition home or self-care (01) ==
LOC: HO.HOS 10:15
PROVIDERS: PCP Internal Medicine; Visit Provider Orthopaedic Surgery
DX: S62.171A Displaced fracture of trapezium [larger multangular], right wrist, initial encounter for closed fracture (principal)
CPT/HCPCS: 99024

== ENCOUNTER → 2024-02-24 10:15 | Outpatient (BNVA) | payer OTHER, SELFPAY | PROVIDERS: PCP Internal Medicine; Visit Provider Orthopaedic Surgery ==

== ENCOUNTER 2024-03-28 08:12 | Outpatient (AMB) | payer OTHER, SELFPAY ==
--- NOTE | 2024-03-28 08:26 | MHC.OFFVIS ---
Vital Signs 03/28/24 08:39 Height 5 ft 7 in Weight 166 lb BMI 26.0 Handedness Right Intake Visit Reasons: OV: fx of RT wrist DOI:01/24/24w/out xrays Intake Note: Jennifer is a 58 year old right hand dominant female who presents today for a follow up visit of her fracture of trapezium of her right wrist s/p fall DOI: 01/24/2024. Patient reports she has no pain with certain movement of the right wrist however anything with grasping or applying pressure against her thumb causing a shooting pain down her right wrist. Allergies celecoxib [From Celebrex] Allergy (Severe, Verified 03/28/24 08:39) swelling of face bananas Allergy (Unknown, Uncoded 03/28/24 08:39) Unknown bananas/walnuts Allergy (Unknown, Uncoded 03/28/24 08:39) Unknown raisins Allergy (Unknown, Uncoded 03/28/24 08:39) Unknown walnuts Allergy (Unknown, Uncoded 03/28/24 08:39) Unknown HPI HPI OV: fx of RT wrist DOI:01/24/24w/out xrays: Details: Patient is a 58-year-old female who presents for follow-up evaluation of right trapezium fracture, date of injury 01/24/2024. Today, the patient reports that she is feeling well, and then she has what she feels is full range of motion of her right wrist. However, the patient does state that she does still experience some discomfort when applying direct pressure to her right thumb, and this radiates from the base of the thumb down into her right wrist. The patient states that this pain comes and goes, is unpredictable, and only occurs with certain actions. No other acute complaints or concerns at this time. [facility] Medical History (Updated 02/12/24 @ 10:57 by DAWOOD Stone) Varicose vein of leg History of depression History of anxiety Skin cancer of face Surgical History Hx of adenoidectomy History of appendectomy H/O laparoscopy Family History Paternal Grandmother History of breast cancer Bone cancer Mother Breast cancer, Onset Age: 74 Maternal Grandmother Lung cancer Liver cancer Social History Alcohol intake: current Alcohol intake frequency: a few times a month Patient Tobacco Use Status: Never used Tobacco Current occupational status: employed Current occupation: [employer] Physical Exam Vital Signs: BMI result Body Mass Index 26.0 Const General: no acute distress and alert Orientation/consciousness: patient oriented x3 Neuro General: patient oriented x3 Extrem Other: Evaluation of Right Upper Extremity: The patient is alert, oriented, and in no acute distress Neuro: Median, Ulnar, Radial nerves motor and sensory intact Vascular: Cap refill brisk ROM: She can make a fist and extend all of her digits. No locking or catching She is very mildly tender to palpation over the volar ulnar basal joint No tenderness over the dorsal basal joint Good active motion of the thumb without discomfort in the office today No pain in the office today with axial loading of the right thumb CT Scan FINDINGS: Scaphoid: Intact. No fracture. Trapezium: There is a nondisplaced/minimally displaced minimally comminuted intra-articular fracture of the ulnar distal aspect of the bone. See coronal image 12 series 7. See axial image 46 series 9 the fracture line extends to the ulnar aspect of the 1st carpometacarpal joint The remaining bones joints and soft tissues are unremarkable. IMPRESSION: Nondisplaced/minimally displaced minimally comminuted intra-articular fracture of the distal trapezium No scaphoid fracture Electronically signed by: Ben Parson MD 02/12/2024 Psych Appearance: grossly normal Affect: normal affect Attitude: cooperative Assessment & Plan Assessment & Plan (1) Fracture of trapezium of right wrist: Code(s): S62.171A - Displaced fracture of trapezium [larger multangular], right wrist, initial encounter for closed fracture Category: Medical Plan Assessment & Plan: 1. Right wrist Trapezium fracture, S/P fall, DOI: 01/24/24 Appears to be extra-articular Now 3 weeks post injury. I educated her about this condition We will continue to manage this non-operatively She was fitted for a velcro wrist splint, to be worn with daily activities for the next 2 weeks. She will remove this when at home I discussed activity modifications, she is to lift nothing heavier than a cellphone for the next week. 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 Instructed that she should continue with her current work restrictions until follow-up Patient will follow-up in 2 weeks for reassessment, sooner with any acute concerns Coding Level of Care Code Global (74306) Diagnoses Fracture of trapezium of right wrist S62.171A
[2024-03-28 08:39] VITALS: BMI 26.0
== END 2024-03-28 08:43 | disposition home or self-care (01) ==
PROVIDERS: PCP Internal Medicine
DX: S62.171A Displaced fracture of trapezium [larger multangular], right wrist, initial encounter for closed fracture (principal)
CPT/HCPCS: 99024

== ENCOUNTER 2024-04-06 08:13 | Outpatient (AMB) | payer OTHER, SELFPAY ==
--- NOTE | 2024-04-06 08:14 | MHC.OFFVIS ---
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 She is doing well with concerns. Currently not sexually active. Denies any vaginal dryness or irritation. STI testing offered; she declined. Attempting to eat a healthy diet with calcium and vitamin D and stays active with exercise-walking. Last pap smear; 2021. Last mammogram; 2023. Colonoscopy is UTD. Denies any family history of ovarian or colon cancer. FH breast cancer. FORMERLY [facility] Medical History Varicose vein of leg History of depression History of anxiety Skin cancer of face Surgical History Hx of adenoidectomy History of appendectomy H/O laparoscopy Family History Paternal Grandmother History of breast cancer Bone cancer Mother Breast cancer, Onset Age: 74 Maternal Grandmother Lung cancer Liver cancer Social History Alcohol intake: current Alcohol intake frequency: a few times a month Patient Tobacco Use Status: Never used Tobacco Current occupational status: employed Current occupation: [employer] Female Reproductive History Menstrual Menopause type: natural Total pregnancies: 2 Full term: 2 Number of Living Children: 2 Date of last pap smear: 06/15/20 (neg pap and hpv) History of abnormal pap smear: Yes (01/06 ascus) Date of Mammogram: 06/30/23 (Birad 1) Date of last Bone Density Screenin06/30/23 Review of Systems Const All systems reviewed & are unremarkable except as noted in HPI and below Reports as per HPI Eyes Reports no additional complaints ENT Reports no additional complaints Card Reports no additional complaints Resp Reports no additional complaints GI Reports as per HPI and Reports no additional complaints Reports as per HPI Musc Reports no additional complaints Skin/Breast Reports as per HPI Neuro Reports no additional complaints Psych Reports no additional complaints Endo Reports no additional complaints Cornell/Lymph Reports no additional complaints Aller/Immun Reports no additional complaints Physical Exam Const General: cooperative, healthy appearing, no acute distress, well developed and alert Orientation/consciousness: patient oriented x3 HEENT Head: Yes normal to inspection Eyes General: appearance normal, both eyes and all related structures Neck Neck: Yes normal visual inspection Thyroid: Thyroid normal Chest Chest palpation & inspection: normal inspection of the chest and other (no puckering, dimpling, peau de orange, retraction, discharge, masses) Breast/axilla inspection: normal inspection of the breasts Breast/axilla palpation: normal palpation of the breasts Resp Effort & Inspection: normal respiratory effort GI Inspection: Yes normal to inspection Palpation (GI): Soft to palpation Rectal Exam - Female: deferred General: Yes bladder normal to palpation External Female Exam: normal external appearance and normal appearance of the urethra Speculum Exam - Vagina: normal appearance of the vagina, normal palpation, normal vaginal discharge and vagina atrophic Speculum Exam - Cervix: normal appearance of the cervix and normal palpation Bimanual exam- vagina & uterus: normal bimanual exam, normal palpation, uterine size normal, bladder normal to palpation, normal palpation and non-tender Bimanual Exam- Adnexa, other: no masses Skin General skin exam: no rashes or lesions noted Rashes: no rashes Neuro General: patient oriented x3 Cognition (Neuro): normal cognition Extrem General: Yes normal to inspection Psych Attitude: cooperative Thought process: Normal thought process present Assessment & Plan Assessment & Plan (1) Encounter for annual routine gynecological examination: Code(s): Z01.419 - Encounter for gynecological examination (general) (routine) without abnormal findings Category: Medical Plan Discussed: Current recommendations for pap smears per ASCCP guidelines. Breast awareness, periodic self breast exams and yearly mammogram. Maintain a healthy lifestyle, well balanced diet including Calcium 1,200 mg and Vitamin D 600 IU daily, and routine exercise. Contact the office with any postmenopausal bleeding. Patient verbalizes understanding and agrees to the plan of care. She was given opportunity to ask questions and all questions were answered to the best of my ability. 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 This note is constructed using voice recognition software. While every effort has been made to ensure accuracy, director of strategy & mobile errors may have been included. Coding Level of Care Code Est Pt Prev Care 40-64y(86519) Diagnoses Encounter for annual routine gynecological examination Z01.419
[2024-04-06 08:18] VITALS: BP 112/76; BMI 26.0
--- OUTSIDE RECORDS SUMMARY | 2024-04-06 22:59 | XMS_ITS ---
Author Organization [facility] Address [address] [place] [address] Care Team Providers Care Underwriting Clerk Name Role Phone Mark ESPARZA, Josse Primary Care Provider Arvind Fowler [phone] Encounters Encounter Location Date Provider Diagnosis [facility] [address] [place] [id number] 09/08/2023 Arvind Bradshaw Plan Of Treatment No Information Progress Notes * Heaven MCDOWELLaDOB:1965 (58 yo F)Acc No.[id number]:09/08/2023 Progress Note Patient:?Jennifer MCDOWELL Provider:?Arvind Bradshaw DPM :1965???Age:57 Y???Sex:Female D ate:09/08/2023 [facility] [facility] Pcp:Josse Flores MD Subjective: * Chief Complaints: * ??? * Medical History:? Objective: * Vitals:? Assessment: Plan: * Treatment: * Images: * The named appointment provid er may or may not be the originator of this progress note, and it is not deemed complete until electronically signed by the appointment provider. Sign off status: Pending * Provider:Audi Bradshaw DPM Date:? 024 Generated for Printi ng/Faxing/eTransmitting on:?04/06/2024 10:59 PM EST
--- OUTSIDE RECORDS SUMMARY | 2024-04-06 22:59 | XMS_ITS ---
Author Organization [facility] [place] Address [address] [facility] [place] [address] Care Team Providers Care Java Technical Manager Name Role Phone Josse Flores MD Primary Care Provider Arvind Fowler [phone] Medications Medication SIG (Take, Route, Fr equency, Duration) Notes Start Date End Date Status Ambien 5 MG 1 tablet at bedtime as needed Orally Once a day prn Active Multivitamin Active Cymbalta 20 MG 1 capsule Orally Twi ce a day for 30 day(s) Active Vitamin D Active Vitamin B12 Active Encounters Encounter Location Date [facility] [address] [place] [phone] 09/22/2023 Arvind Bradshaw Plantar fascial fibromatosis M72.2 and Tinea unguium B35.1 Assessments Encounter Date Diagnosis (ICD Code) Assessment Notes Treatment Notes Treatment Clinical Notes Section Notes 09/22/2023 Plantar fascial fibromatosis (ICD-10 - M72.2) Patient Educated with: HEEL CORD STRETCHES.pdf (HEEL CORD STRETCHES.pdf) Patient Educated with: RICE THERAPY.pdf (RICE THERAPY.pdf) 09/22/2023 Tinea unguium (ICD-10 - B35.1) Plan Of Treatment Treatment Notes Assessment Notes Plantar fascial fibromatosis Patient Edu cated with: HEEL CORD STRETCHES.pdf (HEEL CORD STRETCHES.pdf) Patient Educated with: RICE THERAPY.pdf (RICE THERAPY.pdf) Next Appt Details Follow Up: prn, Reason: Progress Notes * Talisha MCDOWELLB:1965 (57 yo F)Acc No.[id number]:09/22/2023 Progress Note Patient:?Jennifer Mcdowell Provider:?Arvind Bradshaw DPM :1965???Age:57 Y???Sex:Female D ate:09/22/2023 Address:[address] , [facility] Pcp:Josse Flores MD Subjective: * Chief Complaints: * ??? * HPI: ???Foot Pain:?Nature:?swelling, tenderness.?Location?B/L, R>L, Bottom, Midfoot.?Duration:?1 year.?Onset/Cause:?unknown, denies trauma.?Course:?improved.?Aggrevated:?no aggrevating factors.?Treatments:?viva sport.?Quality/Severity?1, scale 1-10.? 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 ???Skin problems:?Nature:?discolored.?Location:?B/L , 2nd.?Duration:?unknown.?Course:?worse.? * Medical History:? * Surgical History:? * Hospitalization/Major Diagno stic Procedure:? * Medications:?TakingAmbien 5 MG Tablet 1 tablet at bedtime as needed Orally Once a day, Notes: prnMultivitamin Vitamin D Vitamin B12 Cymbalta 20 MG Capsule Delayed Release Particles 1 capsule Orally Twice a dayTaking Ambien 5 MG Tablet 1 tablet at bedtime as needed Orally Once a day, Notes: prnTaking Multivitamin Taking Vitamin D Taking Vitamin B12 Taking Cymbalta 20 MG Capsule Delayed Release Particles 1 capsule Orally Twice a day Objective: * Examination: ???General Examination: ?GENERAL APPEARANCE:?pleasant, alert, well nourished, well developed, well hydrated, with good attention to hygene/body habitus, and in no acute distress.?ORIENTED:?person,place, and time.?Neurological: ?SENSORY:?Neurological exam is normal, pain sensation normal, vibration sensation intact, pinprick sensation is normal in the lower extremities, denies, tingling, burning, anesthesia, paresthesia, hyperesthesia, B/L.?TINEL'S COMPRESSION:?Negative tarsal tunnel, elmo pedis, and medial calcaneal nerves B/L.?BABINSKI REFLEX:?absent.?Neuroma Pain: ?PALPATION:?No interspace pain noted on palpation.?Vascular: ?DP PULSES:?2/4, B/L.?PT PULSES:?2/4, B/L.?CAPILLARY FILL TIME:?3 secs. per digit, B/L.?SKIN TEMPERTURE GRADIENT OF THE LOWER EXTERMITIES:?warm to cool, proximal to distal, B/L.?HAIR GROWTH/TEXTURE/ELASTICITY/TURGOR:?normal, B/L.?PIGMENTATION:?normal, B/L.?EDEMA:?no edema.?TELANGECTASIA:?absent.?VARICOSITIES:?absent.?Dermatologic: ?SKIN FINDINGS:??Skin shows sign(s) of, cyst(s)/fibroma--7mm in charles left and 1.5cm in charles right midfoot .?Orthopedic: ?MUSCLE STRENGTH:?5/5 all groups in a symmetrical fashion , B/L.?GAIT ABNORMALITY:?pronated, abducted, B/L.?Nails: ?NAILS are:? Elongated, overgrown, dystrophic, lytic, greater than 3mm thick, discolored and friable with crumbly malodorous subungual debris, T1, T6.? Assessment: * Assessment: 1.?Tinea unguium - B35.1?2.? 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 Plan: * Treatment: * Procedure Codes:? * Preventive Medicine:? ??Counseling:?Discussion:?-14: Office or other outpatient visit for the evaluation and management of an established patient, which required a medically appropriate history and/or examination and MODERATE level of DECISION MAKING for: 1 OR MORE CHRONIC PROBLEM(S) THATS WORSENING, 2 STABLE CHRONIC PROBLEMS, A NEWLY DIAGNOSED PROBLEM WITH UNCERTAIN PROGNOSIS, AN ACUTE COMPLICATED INJURY WITH MULTIPLE TREATMENT OPTIONS, OR AN ACUTE PROBLEM WITH ACCOMPANYING SYSTEMIC SYMPTOMS, THAT POSE(S) A MODERATE RISK OF MORBIDITY. THIS CONDITION MAY ALSO INCLUDE RX DRUG MANAGEMENT, OR A DECISON FOR MINOR SURGERY. The visit on the day of the encounter encompassed interpreting the data and educating the patient as to the nature of their condition, treatment options available according to their individual PMH, meds, allergies, and overall health/living conditions, as well as any potential risks or complications that may occur from a failure to adhere to, and participate in, the recommended course of therapy. The discussion included a complete verbal, and/or written explanation of the examination results, any x-rays taken, the proposed diagnosis, and outline of the treatment plan. A schedule for future care needs was also explained. The patient verbalized an understanding of the instructions at this time and agreed to be an active participant in their treatment. If the patient should think of any questions or concerns after the visit, I have encouraged the patient to call the office-- pt to wear larger shoe size and use topical vicks for nails deborah 2nd and also consider topical verapamil for fibroma's if they become symptomatic.? * Follow Up:?prn * Images: * Sign off status: Completed true * Provider:?Arvind Bradshaw DPM Date:? 024 Generated for Julianna blackwell/Karon/Timur on:?04/06/2024 10:59 PM EST History and Physical Notes * HPI (History of Present Illness) Category Sub-Category Detail Notes Category Not es Skin problems Nature: discolored Location: B/L , 2nd Duration: unknown Course: worse Foot Pain Aggrevated: no aggrevating factors pt w orks as nurse at [employer] work connection Onset/Cause: unknown, yovanny ge ma Course: improved Duration: 1 year Nature: swelling, tenderness Treatments: viva sport Quality/Severity 1, scale 1-10 Location B/L, R>L, Bottom, Mi dfoot Examination Category Sub-Category Detail Notes Category Not es Neuroma Pain PALPATION: No interspace pain noted on palpation Neurological SENSORY: Neurological exa m is normal, pain sensation normal, vibration sensation intact, pinprick sensation is normal in the lower extremities, denies, tingling, burning, anesthesia, paresthesia, hyperesthesia, B/L BABINSKI REFLEX: absent TINEL'S COMPRESSION: Negative tarsal matthew екатерина, elmo pedis, and medial calcaneal nerves B/L Dermatologic SKIN FINDINGS: Skin shows sign( s) of, cyst(s)/fibroma--7mm in charles left and 1.5cm in charles right midfoot Orthopedic GAIT ABNORMALITY: pronated, abducted, B/L MUSCLE STRENGTH: 5/5 all groups in a symmetrical fashion , B/L General Examination GENERAL APPEARANCE: pleasant , alert, well nourished, well developed, well hydrated, with good attention to hygene/body habitus, and in no acute distress ORIENTED: person,place, and ti me Vascular DP PULSES(B): 2/4, B/L PT PULSES(B): 2/4, B/L CAPILLARY FILL TIME: 3 secs. per digit, B/L TEMPERTURE GRADIENT(C): warm to cool, pr oximal to distal, B/L TROPHIC CONDITION-TEXTURE/ELASTICITY/TURGOR/HAIR GROWTH(B): normal, B/L EDEMA(C): no edema TELANGECTASIA: absent VARICOSITIES: absent PIGMENTATION: normal, B/L Nails NAILS are: Elongated, overg rown, dystrophic, lytic, greater than 3mm thick, discolored and friable with crumbly malodorous subungual debris, T1, T6
--- OUTSIDE RECORDS SUMMARY | 2024-04-06 23:00 | XMS_ITS | Patient Health Record ---
Author Organization [facility] yusuf [place] Address [address] [place] [address] Care Team Providers Care Manager Wind Name Role Phone Josse Flores MD Primary Care Provider Arvind Fowler Unavailable [phone] Allergies Allergen (clinical drug ingredient) Drug/Non Drug Allergy documented on EMR Reaction Allergy Type Onset Date Status Raisins raisins (uncoded) only if uncook ed mouth itches Allergy Active banana allergenic extract Banana (Diagnostic) only if uncooked mouth itches Drug Allergy Active codeine Codeine nausea Drug Allergy Active Tree Nuts only if uncooked mouth itches Allergy Active Reason For Referral No Information Medications Medication SIG (Take, Route, Fr equency, Duration) Notes Start Date End Date Status Ambien 5 MG 1 tablet at bedtime as needed Orally Once a day prn Active Multivitamin Active Cymbalta 20 MG 1 capsule Orally Twi ce a day for 30 day(s) Active Vitamin D Active Vitamin B12 Active Social History Tobacco Use: Social History Observation Description Date Details (start date - stop date) Former Smoker NA - NA Tobacco Use/Smoking Question Answer Notes Are you a: former smoker Alcohol Screen Question Answer Notes Did you have a drink contain ing alcohol in the past year? Yes How often did you have a dri nk containing alcohol in the past year? 2 to 4 times a month (2 points) Points 2 Interpretation Negative Tobacco use other than smoking: Question Answer Notes Are you an other tobacco user? No Encounters Encounter Location Date [facility] [address] [facility] [address] [place] [address] 09/22/2023 Arvind Bradshaw Plantar fascial fibromatosis M72.2 and Tinea unguium B35.1 [facility] [address] [place] [address] 09/03/2023 Arvind Bradshaw Assessments Encounter Date Diagnosis (ICD Code) Assessment Notes Treatment Notes Treatment Clinical Notes Section Notes 09/22/2023 Tinea unguium (ICD-10 - B35.1) 09/22/2023 Plantar fascial fibromatosis (ICD-10 - M72.2) Patient Educated with: HEEL CORD STRETCHES.pdf (HEEL CORD STRETCHES.pdf) Patient Educated with: RICE THERAPY.pdf (RICE THERAPY.pdf) Plan Of Treatment Pending Test Test Name Order Date X ray : Foot, left 3V 02/27/2023 X ray : Foot, right 3V 02/27/2023 Insurance Providers Payer Name Payer Address Payer Phone Subscriber Number Group Number Insured Name Patient Relationship to Insured Coverage Start Date Coverage End Date Blue Benefits [address] [address] [place] [address] [id number] Jennifer Mcdowell Self - patient is the insured Medical (General) History Medical History History ICD Code Anxiety Back pain covid-19 Sciatica Chicken pox Surgical History Surgery Date(Month/Year) appendectomy 1976 tonsillectomy and adenoidectomy 1970 Laparoscopy 1992 basal cell removal 05/2013
--- OUTSIDE RECORDS SUMMARY | 2024-04-06 23:00 | XMS_ITS ---
Author Organization [facility] Address [address] [place] [address] Care Team Providers Care Document Analyst Name Role Phone Josse Flores MD Primary Care Provider Arvind Fowler [phone] REASON FOR VISIT Reschedule Encounters Encounter Location Date Provider Diagnosis [facility] [address] [place] [address] 09/03/2023 Arvind Bradshaw Plan Of Treatment No Information Progress Notes * JEREMIAS HeavenaDOB:1965 (57 yo F)Acc No.[id number]:09/03/2023 Patient:?Jennifer Mcdowell :1965???Age:57 Y???Sex:Female Address:[address] [place] [address] * true * Date:? Generated for Julianna blackwell/Karon/eTransmitting on:?04/06/2024 10:59 PM EST
== END 2024-04-06 08:54 | disposition home or self-care (01) ==
PROVIDERS: PCP Internal Medicine; Visit Provider Advanced Practice Midwife
DX: Z01.419 Encounter for gynecological examination (general) (routine) without abnormal findings (principal)
CPT/HCPCS: 99396

== ENCOUNTER → 2024-04-06 08:13 | Outpatient (BNVA) | payer OTHER, SELFPAY | PROVIDERS: PCP Internal Medicine; Visit Provider Advanced Practice Midwife ==

== ENCOUNTER 2024-04-13 08:14 | Outpatient (AMB) | payer OTHER, SELFPAY ==
--- NOTE | 2024-04-13 08:24 | A.OFFVIS_ITS ---
Vital Signs 04/13/24 08:32 Height 5 ft 7 in Weight 166 lb BMI 26.0 Handedness Right Intake Visit Reasons: OV-RT wrist fx follow up, DOI 01/24/24 Intake Note: Jennifer is a 58 year old right hand dominant female who presents today for a follow up visit of her fracture of trapezium of her right wrist s/p fall DOI: 01/24/2024. Patient report her right wrist is shirring tender to touch. Her concern is certain motions cause a shooting pain into her wrist. She says she picked up a box of pizza and got this pain however it does not always happen. Reports ROM seems good. Allergies celecoxib [From Celebrex] Allergy (Severe, Verified 04/13/24 08:32) swelling of face bananas Allergy (Unknown, Uncoded 04/13/24 08:32) Unknown bananas/walnuts Allergy (Unknown, Uncoded 04/13/24 08:32) Unknown raisins Allergy (Unknown, Uncoded 04/13/24 08:32) Unknown walnuts Allergy (Unknown, Uncoded 04/13/24 08:32) Unknown HPI HPI OV-RT wrist fx follow up, DOI 01/24/24: Details: Patient Is a 58-year-old female who presents for follow-up evaluation of right trapezium fracture, date of injury 01/24/2024. Patient rpeorts that she is feeling well, but that she does experience some discomfort when lifting with the R wrist. Patient reports that this pain starts at the base of the thumb and radiates into the volar right wrist and forearm, particularly on the radial side. Patient denies any numbness or tingling of the right upper extremity. No other acute complaints or concerns at this time. [facility]LY [facility] Medical History Varicose vein of leg History of depression History of anxiety Skin cancer of face Surgical History Hx of adenoidectomy History of appendectomy H/O laparoscopy Family History Paternal Grandmother History of breast cancer Bone cancer Mother Breast cancer, Onset Age: 74 Maternal Grandmother Lung cancer Liver cancer Social History Alcohol intake: current Alcohol intake frequency: a few times a month Patient Tobacco Use Status: Never used Tobacco Current occupational status: employed Current occupation: [employer] Review of Systems Const All systems reviewed & are unremarkable except as noted in HPI and below Physical Exam Vital Signs: BMI result Body Mass Index 26.0 Const General: no acute distress and alert Orientation/consciousness: patient oriented x3 Neuro General: patient oriented x3 Extrem Other: Evaluation of Right Upper Extremity: The patient is alert, oriented, and in no acute distress Neuro: Median, Ulnar, Radial nerves motor and sensory intact Vascular: Cap refill brisk ROM: She can make a fist and extend all of her digits. No locking or catching She is very mildly tender to palpation over the volar ulnar basal joint No tenderness over the dorsal basal joint Good active motion of the thumb without discomfort in the office today No pain in the office today with axial loading of the right thumb CT Scan FINDINGS: Scaphoid: Intact. No fracture. Trapezium: There is a nondisplaced/minimally displaced minimally comminuted intra-articular fracture of the ulnar distal aspect of the bone. See coronal image 12 series 7. See axial image 46 series 9 the fracture line extends to the ulnar aspect of the 1st carpometacarpal joint The remaining bones joints and soft tissues are unremarkable. IMPRESSION: Nondisplaced/minimally displaced minimally comminuted intra-articular fracture of the distal trapezium No scaphoid fracture Electronically signed by: Ben Parson MD 02/12/2024 Psych Appearance: grossly normal Affect: normal affect Attitude: cooperative Assessment & Plan Assessment & Plan (1) Fracture of trapezium of right wrist: Code(s): S62.171A - Displaced fracture of trapezium [larger multangular], right wrist, initial encounter for closed fracture Category: Medical (2) FCR (flexor carpi radialis) tenosynovitis: Code(s): M65.939 - Unspecified synovitis and tenosynovitis, unspecified forearm Category: Medical Plan 1. Fracture of the trapezium of right wrist 2. FCR tendinitis of right wrist Patient appears to be recovering well from injury Patient is educated recovery course At this time, patient was referred to occupational therapy for range of motion and strengthening of the right wrist in the setting of this fracture and the FCR tendinitis she is experiencing Patient was amenable to this plan Patient is advised that she can wear the Velcro wrist splint provided to her previous visits when her wrist is particularly bothering her, but should not wear it beyond that Patient will follow-up in 4-5 weeks for reassessment, sooner with any acute concerns Orders: Orders OT Evaluation and Treatment Today M65.939 - Unspecified synovitis and tenosynovitis, unspecified forearm, S62.171A - Displaced fracture of trapezium [larger multangular], right wrist, initial encounter for closed fracture Coding Level of Care Code Est Pt Level 3 (56564) Global (79124) Diagnoses Fracture of trapezium of right wrist S62.171A FCR (flexor carpi radialis) tenosynovitis M65.939
--- OUTSIDE RECORDS SUMMARY | 2024-04-13 08:28 | XMS_ITS ---
Author Organization [facility] Address [address] [place] [address] Care Team Providers Care Documentation Analyst Name Role Phone Josse Flores MD Primary Care Provider Arvind Fowler [phone] REASON FOR VISIT Reschedule Encounters Encounter Location Date Provider Diagnosis [facility] [address] [place] [address] 09/03/2023 Arvind Bradshaw Plan Of Treatment No Information Progress Notes * DAVIDNATASHA HeavenaDOB:1965 (57 yo F)Acc No.[id number]:09/03/2023 Patient:?Jennifer Mcdowell :1965???Age:57 Y???Sex:Female Address:[address] [place] [address] * true * Date:? Generated for Julianna blackwell/Karon/eTransmitting on:?04/13/2024 08:28 AM EST
--- OUTSIDE RECORDS SUMMARY | 2024-04-13 08:28 | XMS_ITS ---
Author Organization [facility] Address [address] [place] [address] Care Team Providers Care Metal Control Worker Name Role Phone Mark ESPARZA, Josse Primary Care Provider Arvind Fowler [phone] Encounters Encounter Location Date Provider Diagnosis [facility] [address] [place] [address] 09/08/2023 Arvind Bradshaw Plan Of Treatment No Information Progress Notes * Heaven MCDOWELLaDOB:1965 (58 yo F)Acc No.[id number]:09/08/2023 Progress Note Patient:?Jennifer MCDOWELL Provider:?Arvind Bradshaw DPM :1965???Age:57 Y???Sex:Female D ate:09/08/2023 [facility] [facility] [facility] Pcp:Josse Flores MD Subjective: * Chief Complaints: [...] DPM Date:? 024 Generated for Printi ng/Faxing/eTransmitting on:?04/13/2024 08:28 AM EST
--- OUTSIDE RECORDS SUMMARY | 2024-04-13 08:28 | XMS_ITS ---
Author Organization [facility] madelin [place] Address [address] [facility] [place] [address] Care Team Providers Care Weir Fisherman Name Role Phone Josse Flores MD Primary Care Provider Arvind Fowler [phone] Medications Medication SIG (Take, Route, Fr equency, Duration) Notes Start Date End Date Status Ambien 5 MG 1 tablet at bedtime as needed Orally Once a day prn Active Multivitamin Active Cymbalta 20 MG 1 capsule Orally Twi ce a day for 30 day(s) Active Vitamin D Active Vitamin B12 Active Encounters Encounter Location Date [facility] [address] [place] [phone] 09/22/2023 Arvind Bradshaw Plantar fascial fibromatosis M72.2 [...] Notes * Talisha MCDOWELLB:1965 (57 yo F)Acc No.[id number]:09/22/2023 Progress Note Patient:?Jennifer Mcdowell Provider:?Arvind Bradshaw DPM :1965???Age:57 Y???Sex:Female D ate:09/22/2023 Address:[address] , [facility] Pcp:Josse Flores MD Subjective: * Chief Complaints: * ??? * HPI: ???Foot Pain:?Nature:?swelling, tenderness.?Location?B/L, R>L, Bottom, Midfoot.?Duration:?1 year.?Onset/Cause:?unknown, denies trauma.?Course:?improved.?Aggrevated:?no aggrevating factors.?Treatments:?viva sport.?Quality/Severity?1, scale 1-10.? 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 ???Skin problems:?Nature:?discolored.?Location:?B/L , 2nd.?Duration:?unknown.?Course:?worse.? * [...] DPM Date:? 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
--- OUTSIDE RECORDS SUMMARY | 2024-04-13 08:29 | XMS_ITS | Patient Health Record ---
Author Organization [facility] Ilatatiana yusuf [place] Address [address] [facility] [address] Care Team Providers Care Manager Statistical Name Role Phone Josse Flores MD Primary Care Provider Arvind Fowler Unavailable [phone] Allergies Allergen (clinical drug ingredient) Drug/Non Drug [...] No Encounters Encounter Location Date [facility] [address] [facility] [address] [place] [address] 09/22/2023 Arvind Bradshaw Plantar fascial fibromatosis M72.2 and Tinea unguium B35.1 [facility] [place] [address] [place] [address] 09/03/2023 Arvind Bradshaw Assessments Encounter Date Diagnosis [...] Coverage End Date Blue Benefits [address] [address] [place] [address] [id number] Jennifer Mcdowell Self - patient is the insured Medical (General) History Medical History History ICD Code Anxiety Back pain covid-19 Sciatica Chicken pox Surgical History Surgery Date(Month/Year) appendectomy 1976 tonsillectomy and adenoidectomy 1970 Laparoscopy 1992 basal cell removal 05/2013
[2024-04-13 08:32] VITALS: BMI 26.0
== END 2024-04-13 08:57 | disposition home or self-care (01) ==
PROVIDERS: PCP Internal Medicine
DX: S62.171A Displaced fracture of trapezium [larger multangular], right wrist, initial encounter for closed fracture (principal); M65.931 Unspecified synovitis and tenosynovitis, right forearm
CPT/HCPCS: 99024

== ENCOUNTER 2024-05-19 08:01 | Outpatient (RCR) | payer OTHER, SELFPAY ==
--- NOTE | 2024-04-28 10:03 | MHC.OT.OEV ---
[address] [phone] F: [phone] Occupational Therapy Evaluation Patient Name: Jennifer Mcdowell Diagnosis: (R)fx of trapezium Date of Onset: 01/24/24 Date of Surgery: Attending Provider: Roberto Christopher Prescribed Treatment: MD Follow Up Appointment: History of Current Condition: Patient is a 58 y/o female who was referred to skilled OT for pain and weakness of (R)hand due to fall when walking on [place] [address] resulting in a fx of the (R)trapezium on (01/24/2024). 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 She reports pain when she is doing certain movements . Denies numbness/tingling. She enjoys walking with her dog, cooking and reading. 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 Sleep: (I) Driving: (I) Vision: Balance: Pain Assessment Pain Score: 3 Pain Scale Used: Numeric (0 - 10) Pain Location and Description: 3/10 during movement 0/10 at rest Dull ach and then shooting at times Aggravating Factors: Alleviating Factors: none Skin and Soft Tissue Assessment Skin and Soft Tissue: Comments: Skin intact, no edema present Nerve assessment Ulnar Nerve: Median Nerve: Radial Nerve: Comments: Sensory Assessment Temperature: Light Touch: Proprioception: Vibration: Comments: Edema Assessment Upper Extremity: Lower Extremity: Comments: Dexterity Assessment Dexterity: Comments: WFL Special Tests Comments: AROM(PROM) Strength Cervical Cervical Flexion: Cervical Extension: Cervical Lateral Flexion: Cervical Rotation: Comments: Shoulder Flexion: Extension: Abduction: Internal Rotation: External Rotation: Comments: WFL Flexion: Extension: Abduction: Internal Rotation: External Rotation: Comments: WFL Elbow Flexion: Extension: Pronation: Supination: Comments: WFL Flexion: Extension: Pronation: Supination: Comments: WFL Wrist Flexion: 83 Extension: 74 Ulnar Deviation: 29 Radial Deviation: 39 Comments: Flexion: Extension: Ulnar Deviation: Radial Deviation: Comments: Thumb Thumb CMC Flexion: Thumb MCP Flexion: Thumb IP Flexion: Radial Abduction: Palmar Abduction: [place] (Kapandji 0-10): Comments: WFL Digits Index MCP: PIP: DIP: Long MCP: PIP: DIP: Ring MCP: PIP: DIP: Small MCP: PIP: DIP: Comments: WFL Gross Grasp: (R)60lbs. (L)55lbs. Lateral Pinch: 11 Two-Point Pinch: 8 Three-Jaw Jonathan: 10 Comments: pain with pinching Patient Education Primary Language: Branding Machine Operator Required: No Current Knowledge: Teaching Method: Education Needs Identified on Evaluation: How did patient/family demonstrate learning? Barriers to Learning: Readiness for Learning: Who was educated? Comments: Plan of Care Assessment: Based on initial OT evaluation patient presents with impaired ROM and pain (mainly with pinching) of the (R)hand. Quick DASH= 9.1 indicating patient's perception of UE impairment during self care tasks. Due to the documented impairments it is recommended that patient receive skilled OT in order for patient to achieve her PLOF of (I) and to enhance patient's QOL. Thank you for your referral. STG Duration: 2 weeks Short Term Goals: patient will report 1/10 pain during activities Patient will increase wrist flexion by 10* Patient will increase wrist extension by 10* Patient will increase fitness attendant strength by 5lbs. LTG Duration: 4 weeks Pipe Maker Goals: Patient will be (I) with HEP Patient will have full wrist ROM Patient will achieve a 0 on the Quick DASH indicating overall UE improvement Frequency and Duration: The patient will be seen 2x a week for 4 weeks Treatment Plan: Therapeutic Exercise Therapeutic Activity Home Exercise Program Splinting Patient Education Edema Control ADL Training NMES Iontophoresis Paraffin Fluidotherapy MHP Cold Packs Joint Mobilization Soft Tissue Mobilization Kinesiotaping Other (see comments) Skilled OT eval and treat Electronically Signed By: HERB Astudillo/Val, CLT Reviewed/agree with student documentation: Therapist: Please sign and return to therapist, Thank you for your referral.
--- NOTE | 2024-05-19 09:16 | MHC.OT.DC ---
[address] [phone] F: [phone] Occupational Therapy Discharge Note Patient Name: Jennifer Mcdowell Provider: Roberto Christopher Diagnosis: (R)fx of trapezium Date of Surgery: Date of Evaluation: 04/26/24 Date of Discharge: Treatments to Date: 6 Cancellations to Date: No Shows to Date: Discharge Status: Achieved Goals Improved Function Independent with HEP Discharge Summary: Patient has made steady progress towards her goals achieving all of her director long term care goals and her ROM is WFLs. At this time patient is d/c'd from skilled OT as she has achieved her maximal potential. Patient was a pleasure to work with. Electronically Signed By: Nikki Lee OTR/L, CLT Reviewed/agree with student documentation: Therapist: Please Sign and return to therapist, thank you for your referral.
== END 2024-05-19 09:17 | disposition home or self-care (01) ==
LOC: HO.OT 08:01
PROVIDERS: PCP Internal Medicine
DX: S62.171A Displaced fracture of trapezium [larger multangular], right wrist, initial encounter for closed fracture (principal); M65.931 Unspecified synovitis and tenosynovitis, right forearm
CPT/HCPCS: 97110; 97140; 97166; 97535

== ENCOUNTER 2024-07-01 08:03 | Outpatient (REF) | payer OTHER, SELFPAY ==
--- OUTSIDE RECORDS SUMMARY | 2024-07-01 08:07 | XMS_ITS ---
Author Organization [facility] Ilatatiana yusuf [place] Address [address] [facility] [address] [facility] [place] [address] Care Team Providers Care Pulling Machine Operator Name Role Phone Josse Flores MD Primary Care Provider Arvind Fowler [phone] Allergies Allergen (clinical drug ingredient) Drug/Non Drug Allergy documented on EMR Reaction Allergy Type Onset Date Status Raisins raisins (uncoded) only if uncook ed mouth itches Allergy Active banana allergenic extract Banana (Diagnostic) only if uncooked mouth itches Drug Allergy Active codeine Codeine nausea Drug Allergy Active Tree Nuts only if uncooked mouth itches Allergy Active Medications Medication SIG (Take, Route, Fr equency, Duration) Notes Start Date End Date Status Ambien 5 MG 1 tablet at bedtime as needed Orally Once a day prn Active Multivitamin Active Vitamin D Active Vitamin B12 Active Cymbalta 20 MG 1 capsule Orally Twi ce a day for 30 day(s) Active Encounters Encounter Location Date [facility] [address] [phone] 09/22/2023 rAvind Bradshaw Plantar fascial fibromatosis M72.2 and Tinea [...] prn, Reason: Progress Notes * Talisha MCDOWELLB:1965 (58 yo F)Acc No.[id number]:09/22/2023 Progress Note Patient:?Jennifer MCDOWELL Provider:?Arvind Bradshaw DPM :1965???Age:57 Y???Sex:Female D ate:09/22/2023 Address:[address] [place], [place] [phone] Pcp:Josse Flores MD Subjective: * Chief Complaints: * ??? 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 ???Skin problems:?Nature:?discolored.?Location:?B/L , 2nd.?Duration:?unknown.?Course:?worse.? * Medical History:? * Surgical History:? * Hospitalization/Major Diagno stic Procedure:? * Medications:?TakingAmbien 5 MG Tablet 1 tablet at bedtime as needed Orally Once a day , Notes to Pharmacist: prnMultivitamin Vitamin D Vitamin B12 Cymbalta 20 MG Capsule Delayed Release Particles 1 capsule Orally Twice a day Medication List reviewed and reconciled with the patientTaking Ambien 5 MG Tablet 1 tablet at bedtime as needed Orally Once a day , Notes to Pharmacist: prnTaking Multivitamin Taking Vitamin D Taking Vitamin B12 Taking Cymbalta 20 MG Capsule Delayed Release Particles 1 capsule Orally Twice a day Medication List reviewed and reconciled with the patient * Allergies:?Codeine: nauseaBa ariadna (Diagnostic): only if uncooked mouth itchesTree Nuts: only if uncooked mouth itchesraisins: only if uncooked mouth itches Objective: * Vitals:? * Examination: ???General Examination: ?GENERAL APPEARANCE:?pleasant, alert, [...] ?PALPATION:?No interspace pain noted on palpation.?Vascular: ?DP PULSES (B):?2/4, B/L.?PT PULSES (B):?2/4, B/L.?CAPILLARY FILL TIME:?3 secs. per digit, B/L.?TROPHIC CONDITION-TEXTURE/ELASTICITY/TURGOR/HAIR GROWTH (B):?normal, B/L.?TEMPERTURE GRADIENT (C):?warm to cool, proximal to distal, B/L.?PIGMENTATION:?normal, B/L.?EDEMA (C):?no edema.?TELANGECTASIA:?absent.?VARICOSITIES:?absent.?Dermatologic: ?SKIN FINDINGS:??Skin shows sign(s) of, cyst(s)/fibroma--7mm in charles left and 1.5cm in charles right midfoot .?Orthopedic: ?MUSCLE STRENGTH:?5/5 all groups in a symmetrical fashion , B/L.?GAIT ABNORMALITY:?pronated, abducted, B/L.?Nails: ?NAILS are:? Elongated, overgrown, dystrophic, lytic, greater than 3mm thick, discolored and friable with crumbly malodorous subungual debris, T1, T6.? 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 Plan: * Treatment: * Procedure Codes:? * [...] Bradshaw DPM Date:? 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 per digit, B/L TEMPERTURE GRADIENT (C): warm to cool, p roximal to distal, B/L TROPHIC CONDITION-TEXTURE/ELASTICITY/TURGOR/HAIR GROWTH (B): normal, B/L EDEMA (C): no edema TELANGECTASIA: absent VARICOSITIES: absent PIGMENTATION: normal, B/L Nails NAILS are: Elongated, overg rown, dystrophic, lytic, greater than 3mm thick, discolored and friable with crumbly malodorous subungual debris, T1, T6
--- OUTSIDE RECORDS SUMMARY | 2024-07-01 08:07 | XMS_ITS ---
Author Organization [facility] Address [address] [place] [address] Care Team Providers Care Subcontract Administrator Name Role Phone Mark ESPARZA, Josse Primary Care Provider Arvind Fowler [phone] Encounters Encounter Location Date Provider Diagnosis [facility] [address] [place] [phone] 09/08/2023 Arvind Bradshaw Plan Of Treatment No Information Progress Notes * Heaven MCDOWELLaDOB:1965 (58 yo F)Acc No.[id number]:09/08/2023 Progress Note Patient:?Jennifer MCDOWELL Provider:?Arvind Bradshaw DPM :1965???Age:57 Y???Sex:Female D ate:09/08/2023 [address] [facility] Pcp:Josse Flores MD Subjective: * Chief Complaints: [...] Bradshaw DPM Date:? 024 Generated for Printi ng/Facesarg/eTransmitting on:?07/01/2024 08:07 AM EST
--- OUTSIDE RECORDS SUMMARY | 2024-07-01 08:08 | XMS_ITS ---
Author Organization [facility] Address [address] [place] [address] Care Team Providers Care A P Mechanic Name Role Phone Josse Flores MD Primary Care Provider Arvind Fowler [phone] REASON FOR VISIT Reschedule Encounters Encounter Location Date Provider Diagnosis [facility] [address] [place] [address] 09/03/2023 Arvind Bradshaw Plan Of Treatment No Information Progress Notes * DAVIDHeaven KAURaDOB:1965 (57 yo F)Acc No.[id number]:09/03/2023 Patient:?Jennifer Mcdowell :1965???Age:57 Y???Sex:Female Address:[address] [place] [address] * true * Date:? Generated for Julianna blackwell/Karon/eTransmitting on:?07/01/2024 08:07 AM EST
--- OUTSIDE RECORDS SUMMARY | 2024-07-01 08:08 | XMS_ITS | Patient Health Record ---
Author Organization [facility] Ilatatiana yusuf [place] Address [address] [facility] [place] [address] Care Team Providers Care Logistics Operations Director Name Role Phone Josse Flores MD Primary Care Provider Arvind Fowler Unavailable [phone] Allergies Allergen (clinical drug ingredient) Drug/Non Drug [...] ce a day for 30 day(s) Active Social History Tobacco Use: Social History [...] No Encounters Encounter Location Date [facility] [address] [facility] [address] [place] [address] 09/22/2023 Arvind Bradshaw Plantar fascial fibromatosis M72.2 and Tinea unguium B35.[address] [facility] [address] [place] [address] 09/03/2023 Arvind Bradshaw Assessments Encounter Date Diagnosis [...] Coverage End Date Blue Benefits [address] [address] [place] [address] [id number] Jennifer Mcdowell Self - patient is the insured Medical (General) History Medical History History ICD Code Anxiety Back pain covid-19 Sciatica Chicken pox Surgical History Surgery Date(Month/Year) appendectomy 1976 tonsillectomy and adenoidectomy 1970 Laparoscopy 1992 basal cell removal 05/2013
== END 2024-07-01 08:04 | disposition home or self-care (01) ==
LOC: HO.MAMMO 08:03
PROVIDERS: PCP Internal Medicine; Visit Provider Internal Medicine
DX: Z12.31 Encounter for screening mammogram for malignant neoplasm of breast (principal)
CPT/HCPCS: 77063; 77067

== ENCOUNTER → 2024-07-01 08:15 | Outpatient (BNV) | payer OTHER, SELFPAY | PROVIDERS: PCP Internal Medicine; Visit Provider Internal Medicine | DX: Z12.31 Encounter for screening mammogram for malignant neoplasm of breast (principal) | CPT/HCPCS: 77063; 77067 ==

== ENCOUNTER 2024-08-05 08:18 | Outpatient (REF) | payer OTHER, SELFPAY ==
--- OUTSIDE RECORDS SUMMARY | 2024-08-05 08:23 | XMS_ITS ---
Author Organization [facility] Address [address] [place] [address] Care Team Providers Care Concrete Float Maker Name Role Phone Mark ESPARZA, Josse Primary Care Provider Arvind Fowler [phone] Encounters Encounter Location Date Provider Diagnosis [facility] [address] [place] [phone] 09/08/2023 Arvind Bradshaw Plan Of Treatment No Information Progress Notes * Heaven MCDOWELLaDOB:1965 (58 yo F)Acc No.[id number]:09/08/2023 Progress Note Patient:?Jennifer MCDOWELL Provider:?Arvind Bradshaw DPM :1965???Age:57 Y???Sex:Female D ate:09/08/2023 [facility] [facility] Pcp:Josse Flores MD Subjective: * Chief Complaints: [...] DPM Date:? 024 Generated for Printi ng/Faxing/eTransmitting on:?08/05/2024 08:23 AM EDT
--- OUTSIDE RECORDS SUMMARY | 2024-08-05 08:24 | XMS_ITS | Patient Health Record ---
Author Organization [facility] Ilatatiana yusuf [place] Address [address] [facility] [place] [address] Care Team Providers Care Bench Assembler Name Role Phone Josse Flores MD Primary Care Provider Arvind Fowler Unavailable [phone] Allergies Allergen (clinical drug ingredient) Drug/Non Drug [...] No Encounters Encounter Location Date [facility] [address] [facility] [address] [place] [address] 09/22/2023 Arvind Bradshaw Plantar fascial fibromatosis M72.2 and Tinea unguium B35.1 [facility] [place] [address] [place] [address] 09/03/2023 Arvind Bradshaw Assessments Encounter Date Diagnosis [...] Coverage End Date Blue Benefits [address] [address] [place] [address] [id number] Jennifer Mcdowell Self - patient is the insured Medical (General) History Medical History History ICD Code Anxiety Back pain covid-19 Sciatica Chicken pox Surgical History Surgery Date(Month/Year) appendectomy 1976 tonsillectomy and adenoidectomy 1970 Laparoscopy 1992 basal cell removal 05/2013
--- OUTSIDE RECORDS SUMMARY | 2024-08-05 08:24 | XMS_ITS ---
Author Organization [facility] Ilatatiana yusuf [place] Address [address] [facility] [address] [facility] [place] [address] Care Team Providers Care Fuel Cell Engineer Name Role Phone Josse Flores MD Primary Care Provider Arvind Fowler [phone] Allergies Allergen (clinical drug ingredient) Drug/Non Drug [...] Active Encounters Encounter Location Date [facility] [address] [address] 09/22/2023 Arvind Bradshaw Plantar fascial fibromatosis M72.2 [...] Notes * Talisha MCDOWELLB:1965 (58 yo F)Acc No.[id number]:09/22/2023 Progress Note Patient:?Jennifer MCDOWELL Provider:?Arvind Bradshaw DPM :1965???Age:57 Y???Sex:Female D ate:09/22/2023 Address:[address] [place], [place] [address] Pcp:Josse Flores MD Subjective: * Chief Complaints: * ??? 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 ???Skin problems:?Nature:?discolored.?Location:?B/L , 2nd.?Duration:?unknown.?Course:?worse.? * [...] Bradshaw DPM Date:? 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
--- OUTSIDE RECORDS SUMMARY | 2024-08-05 08:24 | XMS_ITS ---
Author Organization [facility] Address [address] [place] [address] Care Team Providers Care Etl Manager Name Role Phone Josse Flores MD Primary Care Provider Arvind Fowler [phone] REASON FOR VISIT Reschedule Encounters Encounter Location Date Provider Diagnosis [facility] [address] [place] [address] 09/03/2023 Arvind Bradshaw Plan Of Treatment No Information Progress Notes * DAVIDHeaven KAURaDOB:1965 (57 yo F)Acc No.[id number]:09/03/2023 Patient:?Jennifer Mcdowell :1965???Age:57 Y???Sex:Female Address:[address] [place] [address] * true * Date:? Generated for Julianna blackwell/Karon/eTransmitting on:?08/05/2024 08:23 AM EDT
[2024-08-05 08:34] LABS: MANUAL DIFF FLAG NO
[2024-08-05 09:28] LABS: Basophils Absolute Auto 0.1 X10*3/uL (0.0-0.2); Eosinophils Absolute Auto 0.2 X10*3/uL (0.0-0.4); Eosinophils Percent Auto 3.1 % (0-4); Hematocrit 36.8 % (37.0-47.0); Hemoglobin 12.4 g/dl (12.0-16.0); Imm Gran Abs Auto 0.01 X10*3/uL (0.00-0.03); Imm Gran Pct Auto 0.2 % (0.0-0.4); Lymphocytes Percent Auto 40.4 % (20-40); Mean Corpuscular HGB Conc 33.7 g/dl (31.0-35.0); Mean Corpuscular Hemoglobin 32.5 pg (27.0-33.0); Mean Corpuscular Volume 96.3 fL (80.0-98.0); Mean Platelet Volume 9.4 fL (9.4-12.3); Monocytes Absolute Auto 0.3 X10*3/uL (0.1-1.2); Monocytes Percent Auto 5.8 % (2-11); Neutrophils Absolute Auto 2.4 x10*3/uL (2.0-8.3); Neutrophils Percent Auto 49.5 % (45-73); Platelet Count 268 X10*3/uL (160-400); Red Blood Count 3.82 X10*6/uL (4.20-5.50); Red Cell Distribution Width 12.1 % (11.0-16.0); White Blood Count 4.9 X10*3/uL (4.8-10.8)
[2024-08-05 09:50] LABS: Appearance Urine Clear; Color Urine Yellow; Glucose Urine UA Negative (Negative); Leukocyte Esterase Urine Negative (Negative); Nitrite Urine Negative (Negative); Urine Blood Negative (Negative); Urine Ketones Negative (Negative); Urine Protein Negative (Neg-Trace)
[2024-08-05 10:14] LABS: Alanine Aminotransferase 23 U/L (0-31); Albumin Level 4.4 g/dL (3.5-5.0); Alkaline Phosphatase 56 U/L (39-117); Anion Gap 13 (12-20); Aspartate Amino Transferase 25 U/L (5-31); Bilirubin Total 0.5 mg/dL (0.0-1.0); Blood Urea Nitrogen 21 mg/dL (9-16); Calcium 9.5 mg/dL (8.4-10.2); Carbon Dioxide 27 mmol/L (22-29); Chloride 106 mmol/L (96-108); Cholesterol 181 mg/dL (<200); Estimated Glomerular Filt Rate > 60; Glucose Fasting 92 mg/dL (60-99); HDL Cholesterol 68 mg/dL (>40); LDL Cholesterol Calculated 103 mg/dL (<100); Potassium 3.8 mmol/L (3.3-5.1); Sodium 142 mmol/L (135-145); Total Protein 7.4 g/dL (6.5-8.0); Triglycerides 51 mg/dL (<150)
== END 2024-08-05 08:19 | disposition home or self-care (01) ==
LOC: HO.LAB 08:18
PROVIDERS: PCP Internal Medicine; Visit Provider Internal Medicine
DX: Z00.00 Encounter for general adult medical examination without abnormal findings (principal)
CPT/HCPCS: 36415; 80053; 80061; 81003; 85025

== ENCOUNTER 2024-08-12 15:25 | Outpatient (AMB) | payer OTHER, SELFPAY ==
--- OUTSIDE RECORDS SUMMARY | 2024-08-12 15:28 | XMS_ITS ---
Author Organization [facility] Address [address] [place] [address] Care Team Providers Care Endodontist Name Role Phone Josse Flores MD Primary Care Provider Arvind Fowler [phone] REASON FOR VISIT Reschedule Encounters Encounter Location Date Provider Diagnosis [facility] [address] [place] [address] 09/03/2023 Arvind Bradshaw Plan Of Treatment No Information Progress Notes * DAVIDHeaven KAURaDOB:1965 (57 yo F)Acc No.[id number]:09/03/2023 Patient:?Jennifer Mcdowell :1965???Age:57 Y???Sex:Female Address:[address] [place] [address] * true * Date:? Generated for Julianna blackwell/Karon/eTransmitting on:?08/12/2024 03:28 PM EDT
--- OUTSIDE RECORDS SUMMARY | 2024-08-12 15:28 | XMS_ITS ---
Author Organization [facility] Address [address] [place] [address] Care Team Providers Care Bond Analyst Name Role Phone Mark ESPARZA, Josse Primary Care Provider Arvind Fowler [phone] Encounters Encounter Location Date Provider Diagnosis [facility] [address] [place] [phone] 09/08/2023 Arvind Bradshaw Plan Of Treatment No Information Progress Notes * Heaven MCDOWELLaDOB:1965 (58 yo F)Acc No.[id number]:09/08/2023 Progress Note Patient:?Jennifer MCDOWELL Provider:?Arvind Bradshaw DPM :1965???Age:57 Y???Sex:Female D ate:09/08/2023 [address] [facility] Pcp:Josse Flores MD Subjective: * Chief Complaints: [...] DPM Date:? 024 Generated for Printi ng/Faxing/eTransmitting on:?08/12/2024 03:28 PM EDT
--- OUTSIDE RECORDS SUMMARY | 2024-08-12 15:28 | XMS_ITS ---
Author Organization [facility] Ila madelin [place] Address [address] [facility] [address] [facility] [place] [address] Care Team Providers Care Dress Fitter Name Role Phone Josse Flores MD Primary Care Provider Arvind Fowler [phone] Allergies Allergen (clinical drug ingredient) Drug/Non Drug [...] Active Encounters Encounter [facility] Date [facility] [address] [address] 09/22/2023 Arvind Bradshaw Plantar fascial fibromatosis M72.2 [...] Notes * Talisha MCDOWELLB:1965 (58 yo F)Acc No.[id number]:09/22/2023 Progress Note Patient:?Jennifer MCDOWELL Provider:?Arvind Bradshaw DPM :1965???Age:57 Y???Sex:Female D ate:09/22/2023 Address:[address] [place], [place] [id number] Pcp:Josse Flores MD Subjective: * Chief Complaints: * ??? 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 ???Skin problems:?Nature:?discolored.?Location:?B/L , 2nd.?Duration:?unknown.?Course:?worse.? * [...] Bradshaw DPM Date:? 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
--- OUTSIDE RECORDS SUMMARY | 2024-08-12 15:29 | XMS_ITS | Patient Health Record ---
Author Organization [facility] Ilatatiana yusuf [place] Address [address] [facility] [place] [address] Care Team Providers Care Brewing Director Name Role Phone Josse Flores MD Primary Care Provider Arvind Fowler Unavailable [phone] Allergies Allergen (clinical drug ingredient) Drug/Non Drug [...] No Encounters Encounter Location Date [facility] [address] [facility] [address] [place] [address] 09/22/2023 Arvind Bradshaw Plantar fascial fibromatosis M72.2 and Tinea unguium B35.1 [facility] [place] [address] [place] [address] 09/03/2023 Arvind Bradshaw Assessments Encounter Date Diagnosis [...] Coverage End Date [employer] Benefits [address] [address] [place] [address] [id number] Jennifer Mcdowell Self - patient is the insured Medical (General) History Medical History History ICD Code Anxiety Back pain covid-19 Sciatica Chicken pox Surgical History Surgery Date(Month/Year) appendectomy 1976 tonsillectomy and adenoidectomy 1970 Laparoscopy 1992 basal cell removal 05/2013
[2024-08-12 15:38] VITALS: BP 114/60; PULSE 75; TEMP 36.3; O2SAT 99; BMI 26.2
--- NOTE | 2024-08-12 15:38 | MHC.PC.OV ---
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: No Accompanied by: Self / Same As Patient Allergies celecoxib [From Celebrex] Allergy (Severe, Verified 08/12/24 15:38) swelling of face bananas Allergy (Unknown, Uncoded 08/12/24 15:38) Unknown bananas/walnuts Allergy (Unknown, Uncoded 08/12/24 15:38) Unknown raisins Allergy (Unknown, Uncoded 08/12/24 15:38) Unknown walnuts Allergy (Unknown, Uncoded 08/12/24 15:38) Unknown Tobacco use date assessed: 08/12/24 Dental Screening Dental Screen Date: 08/12/24 Did you have a dental visit in the last 12 months?: Yes Did you have a dental problem in the last 6 months where you did not have access to dental care?: No HPI HPI Comments History of Present Illness Details The patient is a 58 year old female with a past medical history of insomnia, anxiety/depression presenting for follow up BH: Anxiety/depression. Insomnia is stable on zolpidem. She has been on duloxetine for years,not sure if it is working. 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 History of BCC with Mohs ROS CONSTITUTIONAL: Denies weight loss, fever and chills. HEENT: Denies changes in vision and hearing. RESPIRATORY: Denies SOB and cough. CV: Denies palpitations and CP GI: Denies abdominal pain, nausea, vomiting and diarrhea. : Denies dysuria and urinary frequency. MSK: Denies new myalgia and joint pain. SKIN: Denies rash and pruritus. NEUROLOGICAL: Denies headache PSYCHIATRIC: see HPI PHYSICAL EXAM: GENERAL: Alert and oriented x 3. NAD EYES: EOMI. Anicteric. HENT: Moist mucous membranes. No scleral icterus. No cervical lymphadenopathy. LUNGS: Clear to auscultation bilaterally. CARDIOVASCULAR: Regular rate and rhythm. No murmur. No JVD. ABDOMEN: Soft, non-tender +bs EXTREMITIES: No edema. Non-tender. SKIN: No rashes or lesions. Warm. NEUROLOGIC: No focal neurological deficits. CN II-XII grossly intact PSYCHIATRIC: Cooperative. Appropriate mood and affect [facility] Medical History Varicose vein of leg History of depression History of anxiety Skin cancer of face Surgical History History of colonoscopy (~05/19/17) Hx of adenoidectomy History of appendectomy H/O laparoscopy Family History Paternal Grandmother History of breast cancer Bone cancer Mother Breast cancer, Onset Age: 74 Maternal Grandmother Lung cancer Liver cancer Social History Housing: House Alcohol intake: current Alcohol intake frequency: a few times a month Patient Tobacco Use Status: Never used Tobacco e-Cigarette/Vaping Use: Never Used service: No Current occupational status: employed Current occupation: [employer] Cognitive needs: No Hearing needs: No Vision needs: Yes (reading glasses) Questionnaire PHQ-9 Over the last 2 weeks, how often have you been bothered by any of the following problems? 1. Little interest or pleasure in doing things: not at all 2. Feeling down, depressed, or hopeless: not at all 3. Trouble falling or staying asleep, or sleeping too much: not at all 4. Feeling tired or having little energy: not at all 5. Poor appetite or overeating: not at all 6. Feeling bad about yourself - or that you are a failure or have let yourself or your family down: not at all 7. Trouble concentrating on things, such as reading the newspaper or watching television: not at all 8. Moving or speaking so slowly that other people could have noticed. Or the opposite - being so fidgety or restless that you have been moving around a lot more than usual: not at all 9. Thoughts that you would be better off or of hurting yourself in some way: not at all Total score: 0 Depression Screening Interpretation: Negative Depression Screening Done: Yes 74631 - PHQ-9 Billing: Yes Source: Developed by Drs. Serge Hathaway, Dragan Gill and colleagues, with an educational gonzalez from [employer]. Thrive Questionnaire Date Thrive assessed: 08/12/24 I am a: Patient Within the past 12 months, did the food you bought not last and you didn't have the money to get more?: Never true Within the past 12 months, did you worry whether your food would run out before you got money to buy more?: Never true Do you have trouble paying for medicines?: No Do you have trouble getting transportation to medical appointments?: No Do you have trouble paying your heating and electricity bill?: No Do you have trouble taking care of your child, family member or friend?: No Do you have trouble with day-to-day activities such as bathing, preparing meals, shopping, managing finances, etc.?: No Are you currently unemployed and looking for a job?: No Are you interested in more education?: No THRIVE Score: 0 AUDIT C Alcohol Use Questionnaire (AUDIT-C) 1. How often do you have a drink containing alcohol?: Monthly or less 2. How many drinks containing alcohol do you have on a typical day when you are drinking?: 1 or 2 3. How often do you have six or more drinks on one occasion?: Less than monthly Total Score: 2 JOAQUÍN-7 AMB Questionnaire JOAQUÍN-7 Date JOAQUÍN - 7 assessed: 08/12/24 Feeling nervous, anxious, or on edge: 0 = Not at all Not being able to stop or control worryin = Not at all Worrying too much about different things: 0 = Not at all Trouble relaxin = Not at all Being so restless that it is hard to sit still: 0 = Not at all Becoming easily annoyed or irritable: 0 = Not at all Feeling afraid as if something awful might happen: 0 = Not at all Total JOAQUÍN-7 score (0-4 normal; 5-9 mild; 10-14 moderate; 15-21 severe): 0 Source: Developed by Drs. Serge Hathaway, Dragan Gill and colleagues, with an educational gonzalez from [employer]. Physical exam (Primary Care) Vital Signs: Last Vital Signs Temp 97.4 F 08/12/24 15:38 Pulse 75 08/12/24 15:38 BP 114/60 08/12/24 15:38 Pulse Ox 99 08/12/24 15:38 Oxygen Delivery Method Room Air 08/12/24 15:38 BMI result Body Mass Index 26.2 Tobacco/Smoking Status: Tobacco use Status Tobacco use date assessed 08/12/24 08/12/24 15:40 Patient Tobacco Use Status Never used Tobacco 08/12/24 15:40 e-Cigarette/Vaping Use Never Used 08/12/24 15:48 PHQ-9: PHQ-9 Score PHQ-9: Total score 0 08/18/24 13:06 Depression Screening Interpretation: Negative Thrive Assessment: Date of Thrive Assessment Date Thrive assessed 08/12/24 08/12/24 15:40 Coding Level of Care Code New Pt Level 4 (25140) Diagnoses Anxiety F41.9 Primary insomnia F51.01 Insomnia type: primary Additional Codes PHQ-9 - 26265 - PHQ-9 Billing: Yes ([id number]) Assessment & Plan Assessment & Plan (1) Anxiety: Code(s): F41.9 - Anxiety disorder, unspecified Category: Medical Plan: stable. may consider increase or SSRI/SNRI switch (2) Insomnia: Code(s): G47.00 - Insomnia, unspecified Category: Medical Qualifiers: Insomnia type: primary Qualified Code(s): F51.01 - Primary insomnia Plan: stable on zolpidem Orders: Orders Lipid Panel 1 Year Z13.0 - Encounter for screening for diseases of the blood and blood-forming organs and certain disorders involving the immune mechanism, Z13.220 - Encounter for screening for lipoid disorders, Z13.228 - Encounter for screening for other metabolic disorders Complete Blood Count Auto Diff 1 Year Z13.0 - Encounter for screening for diseases of the blood and blood-forming organs and certain disorders involving the immune mechanism, Z13.220 - Encounter for screening for lipoid disorders, Z13.228 - Encounter for screening for other metabolic disorders Comprehensive Met. Panel 1 Year Z13.0 - Encounter for screening for diseases of the blood and blood-forming organs and certain disorders involving the immune mechanism, Z13.220 - Encounter for screening for lipoid disorders, Z13.228 - Encounter for screening for other metabolic disorders Vitamin B12 and Folate 1 Year Z13.0 - Encounter for screening for diseases of the blood and blood-forming organs and certain disorders involving the immune mechanism, Z13.220 - Encounter for screening for lipoid disorders, Z13.228 - Encounter for screening for other metabolic disorders Medications: New duloxetine 20 mg PO DAILY 90 caps 3RF Changed From zolpidem 10 mg PO BEDTIME PRN To zolpidem 10 mg PO BEDTIME PRN 60 tabs 3RF insomnia 60 days
== END 2024-08-12 16:21 | disposition home or self-care (01) ==
LOC: HO.HMCHD 15:26
PROVIDERS: PCP Internal Medicine; Visit Provider Internal Medicine
DX: F41.9 Anxiety disorder, unspecified (principal); F51.01 Primary insomnia

== ENCOUNTER → 2024-08-12 15:25 | Outpatient (BNVA) | payer OTHER, SELFPAY | PROVIDERS: PCP Internal Medicine; Visit Provider Internal Medicine | DX: F41.9 Anxiety disorder, unspecified (principal); F51.01 Primary insomnia; F32.A Depression, unspecified | CPT/HCPCS: 96127 ==

== ENCOUNTER 2024-11-02 13:55 | Outpatient (AMB) | payer OTHER, SELFPAY ==
[2024-11-02 13:58] VITALS: BP 120/76; PULSE 77; TEMP 36.2; O2SAT 99; BMI 25.7
--- NOTE | 2024-11-02 13:58 | MHC.PC.OV ---
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: No Accompanied by: Self / Same As Patient Allergies celecoxib (From Celebrex) Allergy (Severe, Verified 11/02/24 14:42) swelling of face bananas Allergy (Unknown, Uncoded 11/02/24 14:42) Unknown bananas/walnuts Allergy (Unknown, Uncoded 11/02/24 14:42) Unknown raisins Allergy (Unknown, Uncoded 11/02/24 14:42) Unknown walnuts Allergy (Unknown, Uncoded 11/02/24 14:42) Unknown Medication List - Last Reconciled 11/02/24 by Tony Lopez MD clonazepam (Klonopin) 0.5 mg PO BID 7 days duloxetine 20 mg PO DAILY multivitamin 1 tab PO DAILY vitamin B complex (B Complex-Vitamin B12 tablet) 1 tab PO DAILY zolpidem 10 mg PO BEDTIME PRN 60 days Tobacco use date assessed: 11/02/24 Dental Screening Dental Screen Date: 11/02/24 Did you have a dental visit in the last 12 months?: Yes Did you have a dental problem in the last 6 months where you did not have access to dental care?: No PFSH Medical History Varicose vein of leg History of depression History of anxiety Skin cancer of face Surgical History History of colonoscopy (~05/19/17) Hx of adenoidectomy History of appendectomy H/O laparoscopy Family History Paternal Grandmother History of breast cancer Bone cancer Mother Breast cancer, Onset Age: 74 Maternal Grandmother Lung cancer Liver cancer Social History Housing: House Alcohol intake: current Alcohol intake frequency: a few times a month Patient Tobacco Use Status: Never used Tobacco e-Cigarette/Vaping Use: Never Used service: No Current occupational status: employed Current occupation: [employer] Cognitive needs: No Hearing needs: No Vision needs: Yes (reading glasses) Questionnaire PHQ-9 Over the last 2 weeks, how often have you been bothered by any of the following problems? 1. Little interest or pleasure in doing things: not at all 2. Feeling down, depressed, or hopeless: nearly every day 3. Trouble falling or staying asleep, or sleeping too much: nearly every day 4. Feeling tired or having little energy: nearly every day 5. Poor appetite or overeating: not at all 6. Feeling bad about yourself - or that you are a failure or have let yourself or your family down: not at all 7. Trouble concentrating on things, such as reading the newspaper or watching television: not at all 8. Moving or speaking so slowly that other people could have noticed. Or the opposite - being so fidgety or restless that you have been moving around a lot more than usual: not at all 9. Thoughts that you would be better off or of hurting yourself in some way: not at all Total score: 9 Source: Developed by Drs. Serge Hathaway, Winosme El, Dragan Horner and colleagues, with an educational gonzalez from [employer]. Thrive Questionnaire Date Thrive assessed: 11/02/24 I am a: Patient Within the past 12 months, did the food you bought not last and you didn't have the money to get more?: Never true Within the past 12 months, did you worry whether your food would run out before you got money to buy more?: Never true Do you have trouble paying for medicines?: No Do you have trouble getting transportation to medical appointments?: No Do you have trouble paying your heating and electricity bill?: No Do you have trouble taking care of your child, family member or friend?: No Do you have trouble with day-to-day activities such as bathing, preparing meals, shopping, managing finances, etc.?: No Are you currently unemployed and looking for a job?: No THRIVE Score: 0 AUDIT C Alcohol Use Questionnaire (AUDIT-C) 1. How often do you have a drink containing alcohol?: Monthly or less 2. How many drinks containing alcohol do you have on a typical day when you are drinking?: 1 or 2 3. How often do you have six or more drinks on one occasion?: Less than monthly Total Score: 2 JOAQUÍN-7 AMB Questionnaire JOAQUÍN-7 Date JOAQUÍN - 7 assessed: 11/02/24 Feeling nervous, anxious, or on edge: 3 = Nearly every day Not being able to stop or control worryin = Not at all Worrying too much about different things: 1 = Several days Trouble relaxin = Several days Being so restless that it is hard to sit still: 0 = Not at all Becoming easily annoyed or irritable: 0 = Not at all Feeling afraid as if something awful might happen: 0 = Not at all Total JOAQUÍN-7 score (0-4 normal; 5-9 mild; 10-14 moderate; 15-21 severe): 5 Source: Developed by Drs. Serge Hathaway, Winsome El, Dragan Horner and colleagues, with an educational gonzalez from [employer]. Physical exam (Primary Care) Vital Signs: Last Vital Signs Temp 97.2 F 11/02/24 13:58 Pulse 77 11/02/24 13:58 BP 120/76 11/02/24 13:58 Pulse Ox 99 11/02/24 13:58 Oxygen Delivery Method Room Air 11/02/24 13:58 BMI result Body Mass Index 25.7 Tobacco/Smoking Status: Tobacco use Status Tobacco use date assessed 11/02/24 11/02/24 14:00 Patient Tobacco Use Status Never used Tobacco 11/02/24 14:00 e-Cigarette/Vaping Use Never Used 11/02/24 14:00 PHQ-9: PHQ-9 Score PHQ-9: Total score 9 11/02/24 14:08 Thrive Assessment: Date of Thrive Assessment Date Thrive assessed 11/02/24 11/02/24 14:00 Coding Level of Care Code Est Pt Level 4 (33143) Complex EM visit Add On G2211 Diagnoses Anxiety F41.9 Assessment & Plan Assessment & Plan (1) Anxiety: Code(s): F41.9 - Anxiety disorder, unspecified Category: Medical Plan: History of Present Illness - The patient is a 59-year-old female presenting with anxiety symptoms and insomnia. - Anxiety disorder: The patient reports a history of anxiety, which resurfaced on Thursday while driving home from [place]. - She experienced symptoms such as tingling in her hands and feet, dry mouth, and a feeling of needing to escape the car. - Despite no chest pain or tachycardia, she felt anxious and called her for support. - The anxiety persisted into Thursday morning, with no specific triggering event identified. - Insomnia: The patient reports lifelong difficulty with sleep, characterized by trouble falling asleep and frequent awakenings during the night. - She has been prescribed Ambien 10 mg but only takes half due to concerns about oversleeping. - Family stressors: The patient has a with PTSD and a daughter with mental health issues, contributing to her stress. - She is currently taking duloxetine 20 mg for anxiety, as prescribed by Dr. Steele, but questions its efficacy. 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 - Family: with PTSD, daughter with mental health issues and alcoholism, another daughter living in [place]. Review of Systems - Neurological: Reports tingling in hands and feet, denies headaches or dizziness. - Cardiovascular: Denies chest pain, palpitations, or tachycardia. - Psychiatric: Reports anxiety and insomnia, denies depression. Physical Exam General: Cooperative and healthy appearing Nutritional Appearance: Well nourished Orientation/consciousness: Patient oriented x3 Limitations: No limitations Head: Normal to inspection General: Appearance normal, both eyes and all related structures Neck: Normal visual inspection Chest: Normal palpation of entire chest wall Respiratory: N ormal respiratory effort Neurology: Patient oriented x3, reports anxiety with symptoms of tingling in hands and feet, dry mouth, and difficulty sleeping. Results Plan 1. Anxiety Disorder - Prescribed clonazepam 0.5 mg to be taken twice a day as needed for anxiety relief. - Recommended increasing duloxetine to 40 mg to better manage anxiety symptoms. - Discussed potential referral to mental health services for further support. 2. Insomnia - Advised against using Ambien in conjunction with clonazepam due to potential over-sedation. Discussion Notes I discussed with the patient that her symptoms are primarily due to anxiety and recommended breaking the cycle with clonazepam. I advised her to increase her duloxetine dosage to 40 mg and consider mental health services for additional support. We also discussed avoiding Ambien while using clonazepam to prevent over-sedation. Follow-up was scheduled for a week to reassess her symptoms and adjust treatment as necessary. Patient Instructions - Take clonazepam 0.5 mg twice a day as needed for anxiety. - Increase duloxetine to 40 mg daily. - Avoid using Ambien while taking clonazepam. - Follow up in one week for reassessment. Orders: Orders Thyroid Stimulating Hormone Today F41.9 - Anxiety disorder, unspecified Medications: New clonazepam (Klonopin) administer 30 minutes before bedtime 0.5 mg PO BID 14 tabs 0RF 7 days
--- OUTSIDE RECORDS SUMMARY | 2024-11-02 14:41 | XMS_ITS | Patient Health Record ---
Author Organization [facility] Address [address] [place] [address] Care Team Providers Care Watermelon Inspector Name Role Phone Josse Flores MD Primary Care Provider Serge Hudson Unavailable [phone] Allergies Allergen (clinical drug ingredient) Drug/Non Drug Allergy documented on EMR Reaction Allergy Type Onset Date Status bananas,walnuts , raisins (uncoded) sensitive to Allergy Active Reason For Referral No Information Medications Medication SIG (Take, Route, Frequency, Duration) Notes Start Date End Date Status Multivitamin Active Cymbalta Active Zofran 4 MG 1 tablet Orally Q 6 hours prn nausea for 2 days 05/19/2017 Active Immunizations Vaccine Route Administration Date Status Comme nts Influenza Unknown 01/26/2016 Administered Social History Tobacco Use: Social History Observation Description Date Details (start date - stop date) Never Smoker NA - NA Tobacco Use/Smoking Question Answer Notes Patient is a nonsmoker Alcohol Screen Question Answer Notes Did you have a drink contain ing alcohol in the past year? Yes How often did you have a dri nk containing alcohol in the past year? 2 to 3 times a week (3 points) How many drinks did you have on a typical day when you were drinking in the past year? 1 or 2 drinks (0 point) How often did you have 6 or more drinks on one occasion in the past year? Never (0 point) Points 3 Interpretation Positive Section Notes: Nonsmoker; occasional alcoho l Problems Problem Type SNOMED Code ICD Code Onset Dates Problem Status W/U Status Risk Notes Problem [id number] Encounter for screening for malignant neoplasm of colon (Z12.11) Active confirmed Problem [id number] Preprocedural examination (Z01.818) Active confirmed Plan Of Treatment Future Test Test Name Order Date COLONOSCOPY 11/19/2016 Insurance Providers Payer Name Payer Address Payer Phone Subscriber Number Group Number Insured Name Patient Relationship to Insured Coverage Start Date [facility]age End Date [facility] [address] [place] [address] [id number] CEJA Self - patient is the insured Medical (General) History Medical History History ICD Code Denies [place],DM,CVA,Lung disease,renal dise ase Anxiety Negative sleep study 2016 Surgical History Surgery Date(Month/Year) Basal cell cancer on her nose 2013 Appendectomy Laparoscopy 1992 Adenoidectomy
== END 2024-11-02 14:38 | disposition home or self-care (01) ==
LOC: HO.HMCHD 13:56
PROVIDERS: PCP Internal Medicine; Visit Provider Internal Medicine
DX: F41.9 Anxiety disorder, unspecified (principal)

== ENCOUNTER 2024-11-03 08:36 | Outpatient (REF) | payer OTHER, SELFPAY ==
--- OUTSIDE RECORDS SUMMARY | 2023-09-08 05:00 | XMS_ITS ---
Author Organization [facility] Address [address] [place] [address] Care Team Providers Care Nicking Machine Operator Name Role Phone Mark ESPARZA, Josse Primary Care Provider Arvind Fowler [phone] Encounters Encounter Location Date Provider Diagnosis [facility] [address] [place] [id number] 09/08/2023 Arvind Bradshaw Plan Of Treatment No Information Progress Notes * Heaven MCDOWELLaDOB:1965 (59 yo F)Acc No.[id number]:09/08/2023 Progress Note Patient: Jennifer GRANDE Provider: Magalis Bradshaw DPM :1965 A ge:57 Y S ex:Female Date:09/08/2023 [facility] [facility] Pcp:Josse Flores MD Subjective: * Chief Complaints: [...] Date: 09/08/2023 Generated for Julianna blackwell/Facesarg/eTransmitting on: 11/03/2024 08:47 AM EDT
--- OUTSIDE RECORDS SUMMARY | 2024-11-03 08:47 | XMS_ITS | Patient Health Record ---
Author Organization [facility] Address [address] [place] [address] Care Team Providers Care Car Shagger Name Role Phone Josse Flores MD Primary Care Provider Serge Hudson Unavailable [phone] Allergies Allergen (clinical drug ingredient) Drug/Non Drug [...] Problem Status W/U Status Risk Notes Problem [id number] Encounter for screening for malignant neoplasm of colon (Z12.11) Active confirmed Problem [id number] Preprocedural examination (Z01.818) Active confirmed Plan Of Treatment Future Test Test Name Order Date COLONOSCOPY 11/19/2016 Insurance Providers Payer Name Payer Address Payer Phone Subscriber Number Group Number Insured Name Patient Relationship to Insured Coverage Start Date Coverage End Date [facility] [address] [place] [address] [id number] K[address] CEJA Self - patient is the insured Medical (General) History Medical History History ICD Code Denies [place],DM,CVA,Lung disease,renal dise ase Anxiety Negative sleep study 2016 Surgical History Surgery Date(Month/Year) Basal cell cancer on her nose 2013 Appendectomy Laparoscopy 1992 Adenoidectomy
[2024-11-03 10:26] LABS: Thyroid Stimulating Hormone 0.75 uIU/mL (0.32-4.0)
== END 2024-11-03 08:37 | disposition home or self-care (01) ==
LOC: HO.LAB 08:36
PROVIDERS: Visit Provider Internal Medicine
DX: F41.9 Anxiety disorder, unspecified (principal)
CPT/HCPCS: 36415; 84443

== ENCOUNTER 2024-11-09 08:30 | Outpatient (AMB) | payer OTHER, SELFPAY ==
--- OUTSIDE RECORDS SUMMARY | 2023-09-08 05:00 | XMS_ITS ---
Author Organization [facility] Address [address] [place] [address] Care Team Providers Care Library Monitor Name Role Phone Mark ESPARZA, Josse Primary Care Provider Arvind Fowler [phone] Encounters Encounter Location Date Provider Diagnosis [facility] [address] [place] [id number] 09/08/2023 Arvind Bradshaw Plan Of Treatment No Information Progress Notes * Heaven MCDOWELLaDOB:1965 (59 yo F)Acc No.[id number]:09/08/2023 Progress Note Patient: Jennifer GRANDE Provider: Magalis Bradshaw DPM :1965 A ge:57 Y S ex:Female Date:09/08/2023 [facility] [facility] Pcp:Josse Flores MD Subjective: * Chief Complaints: * * Medical History: Objective: * Vitals: Assessment: Plan: * Treatment: * Images: * The named appointment provid er may or may not be the originator of this progress note, and it is not deemed complete until electronically signed by the appointment provider. Sign off status: Pending * Provider: Magalis Bradshaw DPM Date: 09/08/2023 Generated for Julianna blackwell/Facesarg/eTransmitting on: 0 11/09/2024 08:33 AM EDT
--- NOTE | 2024-11-09 08:32 | MHC.PC.OV ---
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: No Accompanied by: Self / Same As Patient Allergies celecoxib (From Celebrex) Allergy (Severe, Verified 11/09/24 08:32) swelling of face bananas Allergy (Unknown, Uncoded 11/09/24 08:32) Unknown bananas/walnuts Allergy (Unknown, Uncoded 11/09/24 08:32) Unknown raisins Allergy (Unknown, Uncoded 11/09/24 08:32) Unknown walnuts Allergy (Unknown, Uncoded 11/09/24 08:32) Unknown Tobacco use date assessed: 11/02/24 Dental Screening Dental Screen Date: 11/02/24 [facility] Medical History Varicose vein of leg History of depression History of anxiety Skin cancer of face Surgical History History of colonoscopy (~05/19/17) Hx of adenoidectomy History of appendectomy H/O laparoscopy Family History Paternal Grandmother History of breast cancer Bone cancer Mother Breast cancer, Onset Age: 74 Maternal Grandmother Lung cancer Liver cancer Social History Housing: House Alcohol intake: current Alcohol intake frequency: a few times a month Patient Tobacco Use Status: Never used Tobacco e-Cigarette/Vaping Use: Never Used service: No Current occupational status: employed Current occupation: [employer] Cognitive needs: No Hearing needs: No Vision needs: Yes (reading glasses) Questionnaire Thrive Questionnaire Date Thrive assessed: 11/02/24 JOAQUÍN-7 AMB Questionnaire JOAQUÍN-7 Date JOAQUÍN - 7 assessed: 11/02/24 Source: Developed by Drs. Serge Hathaway, Winsome El, Dragan Horner and colleagues, with an educational gonzalez from [employer]. Physical exam (Primary Care) Vital Signs: Last Vital Signs Pulse 64 11/09/24 08:35 Resp 16 11/09/24 08:35 BP 124/88 11/09/24 08:35 Tobacco/Smoking Status: Tobacco use Status Tobacco use date assessed 11/02/24 11/09/24 08:37 Patient Tobacco Use Status Never used Tobacco 11/09/24 08:37 e-Cigarette/Vaping Use Never Used 11/09/24 08:37 Thrive Assessment: Date of Thrive Assessment Date Thrive assessed 11/02/24 11/09/24 08:37 Coding Level of Care Code Est Pt Level 4 (02018) Complex EM visit Add On G2211 Diagnoses Anxiety F41.9 Assessment & Plan Assessment & Plan (1) Anxiety: Code(s): F41.9 - Anxiety disorder, unspecified Category: Medical Plan: History of Present Illness - The patient is a 59-year-old female presenting with anxiety management. - The patient reports experiencing anxiety, which has been exacerbated by work-related stress and changes in staffing. - She has been prescribed clonazepam to manage her anxiety and has been advised to take it regularly to prevent anxiety episodes. - The patient has also been prescribed duloxetine, with a discussion on the timing and dosage to optimize its effectiveness. - She reports occasional nausea, which may be related to medication intake. Since medications were started, anxiety symptoms have improved. Continues to function and do all ADL's Social History - The patient is employed and experiences work-related stress due to staffing changes. - She is and has a supportive relationship with her spouse, who is aware of her anxiety issues. Review of Systems - Psychiatric: Reports anxiety exacerbated by work stress. Denies depression. - Gastrointestinal: Reports occasional nausea. Denies vomiting or abdominal pain. Physical Exam General: Cooperative and healthy appearing Nutritional Appearance: Well nourished Orientation/consciousness: Patient oriented x3 Limitations: No limitations Head: Normal to inspection General: Appearance normal, both eyes and all related structures Neck: Normal visual inspection Chest: Normal palpation of entire chest wall Respiratory: Normal respiratory effort Neurology: Patient oriented x3 Results - Labs: Thyroid function tests were normal. Plan 1. Anxiety - Continue clonazepam as prescribed to manage anxiety, with the aim of preventing anxiety episodes by taking it regularly rather than as needed. - Continue duloxetine with flexibility in dosing schedule to minimize nausea and optimize therapeutic effect. - Consider psychological strategies such as breathing exercises and detachment techniques to manage anxiety triggers. - Follow-up in three months to reassess anxiety management and medication effectiveness. Discussion Notes During the visit, we discussed the management of anxiety, emphasizing the importance of taking clonazepam regularly to prevent anxiety episodes rather than on an as-needed basis. We also reviewed the dosing schedule for duloxetine to minimize side effects such as nausea. I provided guidance on psychological strategies to manage anxiety triggers and recommended a follow-up in three months to evaluate the effectiveness of the current management plan. Patient Instructions - Take clonazepam as prescribed, regularly, to prevent anxiety episodes. - Continue duloxetine as directed, with flexibility in timing to reduce nausea. - Practice breathing exercises and detachment techniques to manage anxiety triggers. - Schedule a follow-up appointment in three months to review progress. Medications: Changed From duloxetine 20 mg PO DAILY 90 caps 3RF To duloxetine 20 mg PO BID 180 caps 1RF 90 days
--- OUTSIDE RECORDS SUMMARY | 2024-11-09 08:34 | XMS_ITS | Patient Health Record ---
Author Organization [facility] Address [address] [place] [address] Care Team Providers Care Mobile Developer Name Role Phone Mark (RETIRED) Josse ESPARZA Primary Care Provide r Serge Boyle Unavailable [phone] Allergies Allergen (clinical drug ingredient) Drug/Non Drug [...] Problem Status W/U Status Risk Notes Problem [id number] Encounter for screening for malignant neoplasm of colon (Z12.11) Active confirmed Problem [id number] Preprocedural examination (Z01.818) Active confirmed Plan Of Treatment Future Test Test Name Order Date COLONOSCOPY 11/19/2016 Insurance Providers Payer Name Payer Address Payer Phone Subscriber Number Group Number Insured Name Patient Relationship to Insured Coverage Start Date Coverage End Date [facility] [address] [place] [address] [id number] [address] CEJA Self - patient is the insured Medical (General) History Medical History History ICD Code Denies [place],DM,CVA,Lung disease,renal dise ase Anxiety Negative sleep study 2016 Surgical History Surgery Date(Month/Year) Basal cell cancer on her nose 2013 Appendectomy Laparoscopy 1992 Adenoidectomy
[2024-11-09 08:35] VITALS: BP 124/88; PULSE 64; RESP 16
== END 2024-11-09 08:53 | disposition home or self-care (01) ==
LOC: HO.HMCHD 08:30
PROVIDERS: PCP Internal Medicine; Visit Provider Internal Medicine
DX: F41.9 Anxiety disorder, unspecified (principal)

== ENCOUNTER 2025-04-12 08:00 | Outpatient (AMB) | payer OTHER, SELFPAY ==
--- OUTSIDE RECORDS SUMMARY | 2025-04-12 08:04 | XMS_ITS | Patient Health Record ---
[facility] Address [address] [place] [address] Care Team Providers Care Thermal Cutter Hand Name Role Phone Josse Flores MD Primary Care Provider Arvind Cruz Unavailable [phone] Allergies Allergen (clinical drug ingredient) Drug/Non Drug [...] MG 1 capsule Orally Twi ce a day; Duration: 30 day(s) Active Social History Tobacco Use: [...] Are you an other tobacco user? No Plan Of Treatment Pending Test Test Name Order Date X ray : Foot, left 3V 02/27/2023 X ray : Foot, right 3V 02/27/2023 Insurance Providers Payer Name Payer Address Payer Phone Subscriber Number Group Number Insured Name Patient Relationship to Insured Coverage Start Date Coverage End Date [employer] [address] [address] [place] [address] [id number] Jennifer Mcdowell Self - patient is the insured Medical (General) History Medical History History ICD Code Anxiety Back pain covid-19 Sciatica Chicken pox Surgical History Surgery Date(Month/Year) appendectomy 1976 tonsillectomy and adenoidectomy 1970 Laparoscopy 1992 basal cell removal 05/2013
--- OUTSIDE RECORDS SUMMARY | 2025-04-12 08:04 | XMS_ITS | Patient Health Record ---
Author Organization [facility] Address [address] [place] [address] Care Team Providers Care Information Scientist Name Role Phone Mark (RETIRED) Josse ESPARZA Primary Care Provide Serge Pérez Unavailable [phone] Allergies Allergen (clinical drug ingredient) Drug/Non Drug Allergy documented on EMR Reaction Allergy Type Onset Date Status bananas,walnuts , raisins (uncoded) sensitive to Allergy Active Reason For Referral No Information Medications Medication SIG (Take, Route, Fr equency, Duration) Notes Start Date End Date Status Multivitamin Active Cymbalta Active Zofran 4 MG Tablet 1 tablet Orally Q 6 hours prn nausea; Duration: 2 days 05/19/2017 Active Immunizations Vaccine Route Administration Date Status Comme nts Influenza Unknown 01/26/2016 Administered Social History Tobacco Use: Social History Observation Description Date Details (start date - stop date) Never Smoker NA - NA Social History Drugs/Alcohol: Social Info Question Answer Notes Alcohol Screen Did you have a drink containing alcohol in the past year? Yes How often did you have a drink containing alcohol in the past year? 2 to 3 times a week (3 points) How many drinks did you have on a typical day when you were drinking in the past year? 1 or 2 drinks (0 point) How often did you have 6 or more drinks on one occasion in the past year? 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: Nonsmoker; occasional alcoho l Problems Problem Type SNOMED Code ICD Code Onset Dates Problem Status W/U Status Risk Notes Problem Screening for malignant neoplasm of colon (897931482) Encounter for screening for malignant neoplasm of colon (Z12.11) Active confirmed Problem Preprocedural examination ([id number]) Preprocedural examination (Z01.818) Active confirmed Plan Of Treatment Future Test Test Name Order Date COLONOSCOPY 11/19/2016 Insurance Providers Payer Name Payer Address Payer Phone Subscriber Number Group Number Insured Name Patient Relationship to Insured Coverage Start Date Coverage End Date [facility] PROFESSIONAL CLAIMS [address] [place] [address] [id number] [address] CEJA Self - patient is the insured Medical (General) History Medical History History ICD Code Denies [place],DM,CVA,Lung disease,renal dise ase Anxiety Negative sleep study 2016 Surgical History Surgery Date(Month/Year) Basal cell cancer on her nose 2013 Appendectomy Laparoscopy 1992 Adenoidectomy
--- NOTE | 2025-04-12 08:05 | A.OFFVIS_ITS ---
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 No concerns Road Inspector Required: No Information Interpreted: non-clinical & clinical Inserter: Inserter Present (Alicia) Accompanied by: Self / Same As Patient Allergies celecoxib (From Celebrex) Allergy (Severe, Verified 11/09/24 08:32) swelling of face bananas Allergy (Unknown, Uncoded 11/09/24 08:32) Unknown bananas/walnuts Allergy (Unknown, Uncoded 11/09/24 08:32) Unknown raisins Allergy (Unknown, Uncoded 11/09/24 08:32) Unknown walnuts Allergy (Unknown, Uncoded 11/09/24 08:32) Unknown Medication List - Last Reconciled 04/12/25 by Tamera Siu LPN cholecalciferol (vitamin D3) 25 mcg PO DAILY clonazepam (Klonopin) 0.5 mg PO BID 7 days duloxetine 20 mg PO BID 90 days multivitamin 1 tab PO DAILY vitamin B complex (B Complex-Vitamin B12 tablet) 1 tab PO DAILY zolpidem 10 mg PO BEDTIME PRN 60 days Do you need a note to return to daycare/school/sports/work: No HPI Comments Details: 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 Heating Element Winder concerns: none. Currently not sexually active. Denies any vaginal dryness or irritation. STI testing offered; she accepts. Attempting to eat a healthy diet with calcium and vitamin D and stays active with exercise. Last pap smear; 2020, negative. Last mammogram; 2024. Colonoscopy is UTD. [facility] Medical History Varicose vein of leg History of depression History of anxiety Skin cancer of face Surgical History History of colonoscopy (~05/19/17) Hx of adenoidectomy History of appendectomy H/O laparoscopy Family History Paternal Grandmother History of breast cancer Bone cancer Mother Breast cancer, Onset Age: 74 Maternal Grandmother Lung cancer Liver cancer Social History Housing: House Alcohol intake: current Alcohol intake frequency: a few times a month Patient Tobacco Use Status: Never used Tobacco e-Cigarette/Vaping Use: Never Used service: No Current occupational status: employed Current occupation: [employer] Cognitive needs: No Hearing needs: No Vision needs: Yes (reading glasses) Female Reproductive History Menstrual Age of Menarche: 11 Menopause type: natural Total pregnancies: 2 Number of Living Children: 2 Date of last pap smear: 06/15/20 History of abnormal pap smear: No Date of Mammogram: 07/01/24 (Bi Rad 1) History of abnormal mammogram: No Review of Systems Const All systems reviewed & are unremarkable except as noted in HPI and below Reports as per HPI Eyes Reports no additional complaints ENT Reports no additional complaints Card Reports no additional complaints Resp Reports no additional complaints GI Reports as per HPI and Reports no additional complaints Reports as per HPI Musc Reports no additional complaints Skin/Breast Reports as per HPI Neuro Reports no additional complaints Psych Reports no additional complaints Endo Reports no additional complaints Cornell/Lymph Reports no additional complaints Aller/Immun Reports no additional complaints Physical Exam Vital Signs: BMI result Body Mass Index 26.0 Const General: cooperative, healthy appearing, no acute distress, well developed and alert Orientation/consciousness: patient oriented x3 HEENT Head: Yes normal to inspection Eyes General: appearance normal, both eyes and all related structures Neck Neck: Yes normal visual inspection Thyroid: Thyroid normal Chest Chest palpation & inspection: normal inspection of the chest and other (no puckering, dimpling, peau de orange, retraction, discharge, masses) Breast/axilla inspection: normal inspection of the breasts Breast/axilla palpation: normal palpation of the breasts Resp Effort & Inspection: normal respiratory effort GI Inspection: Yes normal to inspection Palpation (GI): Soft to palpation Rectal Exam - Female: deferred General: Yes bladder normal to palpation External Female Exam: normal external appearance and normal appearance of the urethra Speculum Exam - Vagina: normal appearance of the vagina, normal palpation, normal vaginal discharge and vagina atrophic Speculum Exam - Cervix: normal appearance of the cervix and normal palpation Bimanual exam- vagina & uterus: normal bimanual exam, normal palpation, uterine size normal, bladder normal to palpation, normal palpation and non-tender Bimanual Exam- Adnexa, other: no masses Skin General skin exam: no rashes or lesions noted Rashes: no rashes Neuro General: patient oriented x3 Cognition (Neuro): normal cognition Extrem General: Yes normal to inspection Psych Attitude: cooperative Thought process: Normal thought process present Telehealth Telehealth Telehealth Platform: Level 5 Networks Assessment & Plan Assessment & Plan (1) Encounter for annual routine gynecological examination: Code(s): Z01.419 - Encounter for gynecological examination (general) (routine) without abnormal findings Category: Medical Plan Discussed: Current recommendations for pap smears per ASCCP guidelines. Breast awareness, periodic self breast exams and yearly mammogram. Maintain a healthy lifestyle, well balanced diet including Calcium 1,200 mg and Vitamin D 600 IU daily, and routine exercise. Contact the office with any postmenopausal bleeding. Patient verbalizes understanding and agrees to the plan of care. She was given opportunity to ask questions and all questions were answered to the best of my ability. RTO in 1 year for annual real estate branch manager exam. This note is constructed using voice recognition software. While every effort has been made to ensure accuracy, photographic processor errors may have been included. Coding Level of Care Code Est Pt Prev Care 40-64y(20024) Diagnoses Encounter for annual routine gynecological examination Z01.419
[2025-04-12 08:07] VITALS: BP 108/76; BMI 26.0
== END 2025-04-12 08:37 | disposition home or self-care (01) ==
LOC: HO.HWS 08:00
PROVIDERS: PCP Internal Medicine; Visit Provider Advanced Practice Midwife
DX: Z01.419 Encounter for gynecological examination (general) (routine) without abnormal findings (principal)
CPT/HCPCS: 99396; 99459